=== PATIENT | female | born 1950 | race Caucasian/White ===

== ENCOUNTER 2019-04-09 07:52 | Outpatient (CLI) | payer MEDICARE, SELFPAY ==
--- NOTE | ~2019-04-09 | US_ITS ---
EXAMINATION: US carotid duplex BI DATE: 04/09/2019 13:59 INDICATION: Carotid bruit presenting with right speech and language deficit right hemiparesis includi ng right facial weakness. TECHNIQUE: Grayscale, color Doppler, and pulsed Doppler images of the cervical carotid arteries were obtained. The degree of vessel stenosis is placed in one of the following categories: normal, <50%, 5 0-69%, >=70% but less than near-occlusion, near-occlusion, or total occlusion. Note that percent sten osis relative to normal distal artery lumen diameter is indirectly measured from velocity measurement s as described by Felipe, et al. Radiology 2003; 229:340-346. COMPARISON: None. FINDINGS: RIGHT: The right common carotid artery (CCA) peak systolic velocity (PSV) is 68 cm/s. The right internal car otid artery (ICA) PSV is 100 cm/s. The right ICA end-diastolic velocity (EDV) is 32 cm/s. The right I CA/CCA PSV ratio is 1.5. Grayscale and color Doppler images yield an estimate of <50% diameter reduct ion from plaque in the ICA. The external carotid artery (ECA) PSV is 193 cm/s. There is antegrade violet w in the right vertebral artery. LEFT: The left CCA PSV is 125 cm/s. The left ICA PSV was measured as 132 cm/s. The left ICA EDV is 11 cm/s. The left ICA/CCA PSV ratio is 1.1. There is however little if any signal on the color Doppler images in the ICA and the faint waveforms demonstrate a high resistance waveform suggesting this could repr esent averaging of signal from the adjacent left ECA. There is antegrade flow in the left vertebral a rtery but with parvus and tardus waveform suggesting significant upstream stenosis. IMPRESSION: 1. <50% stenosis in the right internal carotid artery. 2. High resistance waveform in the left internal carotid artery which could be due to a high-grade do wnstream stenosis a nonvisualized more cephalad left internal carotid artery. There is however minima l if any color signal in the measured velocities and waveforms may reflect volume averaging artifact from signal in the adjacent left external carotid artery. Consider CT angiogram of the neck for more definitive determination. 3. Parvus tardus waveforms in the left vertebral artery suggesting a high-grade stenosis in the nonvi sualized more proximal left vertebral artery. This could be evaluated at the same time with CT angiog yannick of the neck. Reviewed, dictated and finalized at location A. OR ENVIRONMENTAL ENGINEER IMPRESSION: 1. <50% stenosis in the right internal carotid artery. 2. High resistance waveform in the left internal carotid artery which could be due to a high-grade downstream stenosis a nonvisualized more cephalad left inte rnal carotid artery. There is however minimal if any color signal in the measur ed velocities and waveforms may reflect volume averaging artifact from signal i n the adjacent left external carotid artery. Consider CT angiogram of the neck for more definitive determination. 3. Parvus tardus waveforms in the left vertebral artery suggesting a high-grade stenosis in the nonvisualized more proximal left vertebral artery. This could be evaluated at the same time with CT angiogram of the neck.
--- NOTE | 2019-04-09 08:10 | ECHO_ITS ---
Patient Info Name: Magdalena Thomas Age: 68 years : 1950 Gender: Female Ht: 59 in Wt: 106 lbs BSA: 1.42 m2 HR: 76 bpm BP: 116 / 67 mmHg Technical Quality: Good Exam Date: 04/09/2019 8:21 AM Exam Location: [facility] Pulmonary Patient Status: Outpatient Admit Date: 04/09/2019 Staff Ordering Physician: Kasi Arambula DO Group Exercise Instructor: Lopez Page RDCS, RT Attending Provider: Kasi Arambula DO Referring Physician: Ralf KING; Exam Type: CA echo doppler color flow Study Info Indications I50.9 - Heart failure, unspecified Complete two-dimensional, color flow and Doppler transthoracic echocardiogram is performed. Summary 1. Left ventricular chamber dimension is normal. 2. Left ventricular systolic function is normal, estimated at 55-60%. 3. There is mildly increased left ventricular wall thickness. 4. The left ventricular diastolic function is grade I diastolic dysfunction. 5. E/e' 11 is mildly elevated. 6. Global longitudinal strain is mildly abnormal at -15.9%. 7. Left atrial chamber dimension is mildly enlarged. 8. There is mild aortic valve sclerosis. 9. Mild mitral annular calcification. 10. There is trace pulmonic regurgitation. Left Ventricle E/e' 11 is mildly elevated. Global longitudinal strain is mildly abnormal at -15.9%. Left ventricular chamber dimension is normal. Left ventricular systolic function is normal, estimated at 55-60%. There is mildly increased left ventricular wall thickness. The left ventricular diastolic function is grade I diastolic dysfunction. Right Ventricle Right ventricular chamber dimension is normal. Right ventricular systolic function is normal. Left Atria Left atrial chamber dimension is mildly enlarged. Right Atria Right atrial chamber dimension is normal. Aortic Valve The aortic valve is trileaflet. There is mild aortic valve sclerosis. There is no aortic valve stenosis. There is no aortic valve regurgitation. Pulmonic Valve There is trace pulmonic regurgitation. Mitral Valve Mild mitral annular calcification. There is no mitral valve stenosis. There is no mitral valve regurgitation. Tricuspid Valve There is no tricuspid valve regurgitation. Pericardium/Pleural There is no pericardial effusion. Inferior Vena Cava Normal inferior vena cava with >50% collapse upon inspiration consistent with normal right atrial pressure, 5 mmHg. Aorta The aortic root size at the sinus of Valsalva is normal. Left Ventricular Outflow Tract Name Value Normal LVOT 2D LVOT Diameter 1.9 cm LVOT Doppler LVOT Peak Gradient 5 mmHg LVOT Mean Gradient 3 mmHg LVOT VTI 21 cm LVOT VTI/AV VTI Ratio 1.0 LVOT Stroke Volume 61 ml LVOT CO 4.5 l/min LVOT CI 3.2 l/min/m2 Pulmonic Valve Name Value Normal
== END 2019-04-09 07:53 | disposition home or self-care (01) ==
PROVIDERS: Visit Provider Internal Medicine Cardiovascular Disease
DX: I50.9 Heart failure, unspecified (principal); R09.89 Other specified symptoms and signs involving the circulatory and respiratory systems; I65.23 Occlusion and stenosis of bilateral carotid arteries; I65.1 Occlusion and stenosis of basilar artery; I51.7 Cardiomegaly; R93.1 Abnormal findings on diagnostic imaging of heart and coronary circulation
CPT/HCPCS: 93306; 93880

== ENCOUNTER 2019-04-29 10:57 | Outpatient (CLI) | payer MEDICARE, SELFPAY ==
[2019-04-29 11:49] LABS: Basophils Percent Auto 0.4 % (0.2-1.2); Eosinophils Absolute Auto 0.2 K/mm3 (0-0.3); Eosinophils Percent Auto 2.6 % (0-4.4); Hematocrit 30.2 % (37.0-47.0); Immature Granulocyte Absolute 0.06 K/mm3 (0.00-0.031); Immature Granulocyte Percent A 0.6 % (0-0.5); Lymphocytes Absolute Auto 0.91 K/mm3 (0.9-3.2); Lymphocytes Percent Auto 9.8 % (18.3-44.2); Mean Corpuscular HGB Conc 29.8 g/dl (32-36); Mean Corpuscular Hemoglobin 24.5 pg (26-34); Mean Corpuscular Volume 82.1 fl (80-100); Mean Platelet Volume 8.5 fl (7.4-10.4); Monocytes Absolute Auto 0.9 K/mm3 (0.1-0.6); Monocytes Percent Auto 9.6 % (2.6-8.5); Neutrophils Absolute Auto 7.1 K/mm3 (1.3-6.7); Platelet Count Result 189 k/mm3 (150-375); Red Blood Count 3.68 M/mm3 (4.2-5.4); Red Cell Distribution Width 19.2 % (11.5-14.5); White Blood Count 9.2 K/mm3 (4.5-10.0)
== END 2019-04-29 10:58 | disposition home or self-care (01) ==
DX: D64.9 Anemia, unspecified (principal)
CPT/HCPCS: 36415; 85025

== ENCOUNTER 2019-09-17 08:49 | Outpatient (RCR) | payer MEDICARE, SELFPAY ==
[2019-09-17 09:18] LABS: Basophils Percent Auto 0.2 % (0.2-1.2); Eosinophils Absolute Auto 0.2 K/mm3 (0-0.3); Eosinophils Percent Auto 1.4 % (0-4.4); Hematocrit 32.3 % (37.0-47.0); Hemoglobin 10.1 g/dL (12.0-15.0); Immature Granulocyte Absolute 0.05 K/mm3 (0.00-0.031); Immature Granulocyte Percent A 0.4 % (0-0.5); Lymphocytes Absolute Auto 0.35 K/mm3 (0.9-3.2); Lymphocytes Percent Auto 2.8 % (18.3-44.2); Mean Corpuscular HGB Conc 31.3 g/dl (32-36); Mean Corpuscular Hemoglobin 25.1 pg (26-34); Mean Corpuscular Volume 80.1 fl (80-100); Mean Platelet Volume 8.9 fl (7.4-10.4); Monocytes Absolute Auto 0.7 K/mm3 (0.1-0.6); Monocytes Percent Auto 5.6 % (2.6-8.5); Neutrophils Absolute Auto 11.1 K/mm3 (1.3-6.7); Neutrophils Percent Auto 89.6 % (45.5-73.1); Platelet Count Result 169 k/mm3 (150-375); Red Blood Count 4.03 M/mm3 (4.2-5.4); Red Cell Distribution Width 18.2 % (11.5-14.5); White Blood Count 12.5 K/mm3 (4.5-10.0)
[2019-09-17 09:32] LABS: Alanine Aminotransferase 11 U/L (4-35); Albumin Level 4.2 g/dL (3.5-5.1); Alkaline Phosphatase 79 U/L (38-126); Aspartate Amino Transferase 20 U/L (14-36); Bilirubin,Total 0.3 mg/dL (0.2-1.3); Blood Urea Nitrogen 48 mg/dL (7-17); Calcium 8.6 mg/dL (8.4-10.2); Carbon Dioxide 20 mmol/L (22-30); Chloride 102 mmol/L (98-107); Estimated Glomerular Filt Rate 13; Glucose 106 mg/dL (65-105); Potassium 3.1 mmol/L (3.4-5.0); Sodium 135 mmol/L (137-145)
== END 2019-12-16 23:59 | disposition home or self-care (01) ==
LOC: ANHLAB 08:49
DX: C92.10 Chronic myeloid leukemia, BCR/ABL-positive, not having achieved remission (principal); N18.9 Chronic kidney disease, unspecified
CPT/HCPCS: 36415; 80053; 85025

== ENCOUNTER 2019-12-17 08:17 | Outpatient (RCR) | payer MEDICARE, SELFPAY ==
[2019-12-17 08:57] LABS: Basophils Percent Auto 0.3 % (0.2-1.2); Eosinophils Absolute Auto 0.4 K/mm3 (0-0.3); Eosinophils Percent Auto 3.3 % (0-4.4); Hematocrit 30.4 % (37.0-47.0); Hemoglobin 9.7 g/dL (12.0-15.0); Immature Granulocyte Absolute 0.08 K/mm3 (0.00-0.031); Immature Granulocyte Percent A 0.7 % (0-0.5); Lymphocytes Absolute Auto 0.33 K/mm3 (0.9-3.2); Lymphocytes Percent Auto 2.9 % (18.3-44.2); Mean Corpuscular HGB Conc 31.9 g/dl (32-36); Mean Corpuscular Hemoglobin 27.1 pg (26-34); Mean Corpuscular Volume 84.9 fl (80-100); Mean Platelet Volume 9.1 fl (7.4-10.4); Monocytes Absolute Auto 0.7 K/mm3 (0.1-0.6); Monocytes Percent Auto 6.3 % (2.6-8.5); Neutrophils Absolute Auto 9.7 K/mm3 (1.3-6.7); Neutrophils Percent Auto 86.5 % (45.5-73.1); Platelet Count Result 141 k/mm3 (150-375); Red Blood Count 3.58 M/mm3 (4.2-5.4); Red Cell Distribution Width 17.3 % (11.5-14.5); White Blood Count 11.2 K/mm3 (4.5-10.0)
[2019-12-17 09:04] LABS: Alanine Aminotransferase 12 U/L (4-35); Albumin Level 4.4 g/dL (3.5-5.1); Alkaline Phosphatase 70 U/L (38-126); Anion Gap 13 mmol/L (8-16); Aspartate Amino Transferase 20 U/L (14-36); Bilirubin,Total 0.3 mg/dL (0.2-1.3); Blood Urea Nitrogen 51 mg/dL (7-17); Calcium 9.3 mg/dL (8.4-10.2); Carbon Dioxide 23 mmol/L (22-30); Chloride 103 mmol/L (98-107); Estimated Glomerular Filt Rate 11; Glucose 115 mg/dL (65-105); Potassium 3.2 mmol/L (3.4-5.0); Sodium 139 mmol/L (137-145)
== END 2020-03-16 23:59 | disposition home or self-care (01) ==
LOC: ANHLAB 08:17
DX: N18.9 Chronic kidney disease, unspecified (principal); C92.10 Chronic myeloid leukemia, BCR/ABL-positive, not having achieved remission
CPT/HCPCS: 36415; 80053; 85025

== ENCOUNTER 2019-12-30 08:15 | Outpatient (CLI) | payer MEDICARE, SELFPAY ==
[2019-12-30 08:30] VITALS: PULSE 79; O2SAT 91
[2019-12-30 08:35] VITALS: PULSE 93; O2SAT 87
[2019-12-30 08:40] VITALS: PULSE 100; O2SAT 91
[2019-12-30 08:50] VITALS: PULSE 82; O2SAT 92
--- NOTE | 2019-12-30 09:41 | HOMEO2EVAL ---
Home Oxygen Evaluation RC: Home Oxygen (O2) Evaluation Start: 12/30/19 09:38 Freq: Status: Active Protocol: RPE Activity Type Activity Date Activity User E-Sign Co-Sign Detail Recorded Client Recorded Date Recorded By Document 12/30/19 08:30 DJO [id number] 12/30/19 09:41 DJO Document 12/30/19 08:35 [email or web address] [email or web address] 12/30/19 09:41 DJO Document 12/30/19 08:40 [email or web address] [email or web address] 12/30/19 09:41 DJO Document 12/30/19 08:50 [email or web address] [email or web address] 12/30/19 09:41 DJO 12/30/19 12/30/19 12/30/19 08:30 08:35 08:40 Home O2 Evaluation Test Phase Resting Exercise Exercise Oxygen Delivery Nasal Cannula Nasal Cannula Nasal Cannula Oxygen Flow Rate (L/min) 2 2 3 Pulse Oximetry (90-100 %) 91 87 L 91 Pulse Rate (60-100 beats/min) 79 93 100 Activity Tolerance Good Ambulation Distance (feet) 500 Treatment Charges O2 Evaluation 12/30/19 08:50 Home O2 Evaluation Test Phase Resting Oxygen Delivery Nasal Cannula Oxygen Flow Rate (L/min) 2 Pulse Oximetry (90-100 %) 92 Pulse Rate (60-100 beats/min) 82 Activity Tolerance Ambulation Distance (feet) Treatment Charges
== END 2019-12-30 08:16 | disposition home or self-care (01) ==
PROVIDERS: Visit Provider Nurse Practitioner Family
DX: R09.02 Hypoxemia (principal)
CPT/HCPCS: 94618

== ENCOUNTER 2020-02-25 10:34 | Outpatient (CLI) | payer MEDICARE, SELFPAY ==
[2020-02-25 11:06] LABS: Hematocrit 29.5 % (37.0-47.0); Hemoglobin 9.5 g/dL (12.0-15.0); Mean Corpuscular HGB Conc 32.2 g/dl (32-36); Mean Corpuscular Hemoglobin 27.7 pg (26-34); Mean Platelet Volume 8.5 fl (7.4-10.4); Platelet Count Result 160 k/mm3 (150-375); Red Blood Count 3.43 M/mm3 (4.2-5.4); Red Cell Distribution Width 17.5 % (11.5-14.5); White Blood Count 12.7 K/mm3 (4.5-10.0)
[2020-02-25 11:18] LABS: Anion Gap 14 mmol/L (8-16); Blood Urea Nitrogen 38 mg/dL (7-17); Calcium 8.6 mg/dL (8.4-10.2); Carbon Dioxide 21 mmol/L (22-30); Chloride 102 mmol/L (98-107); Estimated Glomerular Filt Rate 11; Glucose 166 mg/dL (65-105); Phosphorus 4.8 mg/dL (2.5-4.5); Potassium 3.1 mmol/L (3.4-5.0); Sodium 137 mmol/L (137-145)
[2020-02-25 11:30] LABS: Parathyroid Intact 558.9 pg/mL (7.5-53.5)
[2020-02-25 11:44] LABS: Total Protein Urine Random 496 mg/dL
[2020-02-25 11:55] LABS: Vitamin D 25 Hydroxy 19.7 ng/mL
[2020-02-25 12:24] LABS: Folic Acid 9.7 ng/mL (2.76->20)
== END 2020-02-25 10:35 | disposition home or self-care (01) ==
LOC: ANHLAB 10:37
PROVIDERS: Internal Medicine; Visit Provider Internal Medicine Nephrology
DX: D64.9 Anemia, unspecified (principal); N18.4 Chronic kidney disease, stage 4 (severe); E55.9 Vitamin D deficiency, unspecified
CPT/HCPCS: 36415; 80069; 81050; 82306; 82607; 82746; 83970; 84156; 85027

== ENCOUNTER 2020-02-26 10:52 | Outpatient (CLI) | payer MEDICARE, SELFPAY ==
--- NOTE | ~2020-02-26 | XR_ITS ---
[id number] DATE: 02/26/2020 11:10 INDICATION: Lower right lateral rib pain following a fall one week ago. History of COPD. TECHNIQUE: PA chest. 3 views of the right ribs. COMPARISON: None FINDINGS: Diffuse osteopenia. No right rib fracture is evident. No bone destruction is detected. Probable old healed proximal right humeral shaft fracture deformity. There is mild infiltrate or atelectasis in the lower lung zones, left greater than right Heart size is within normal range. Is aortic calcification, as well as mild left pleural effusion wit h thickening. No right pleural effusion. No pneumothorax. There is mild bilateral apical scarring, le ft greater than right. IMPRESSION: Diffuse osseous pain; no right rib fracture is noted. Bibasilar infiltrate and/atelectasis, left greater than right, mild left pleural effusion or thickeni ng Reviewed, dictated and finalized at Location [facility]. Reviewed, dictated and finalized at location A. PAPER PRESS OPERATOR APPRENTICE IMPRESSION: Diffuse osseous pain; no right rib fracture is noted. Bibasilar infiltrate and/atelectasis, left greater than right, mild left pleura l effusion or thickening
== END 2020-02-26 10:53 | disposition home or self-care (01) ==
LOC: ANHIMG 10:58
PROVIDERS: Visit Provider Internal Medicine
DX: R07.81 Pleurodynia (principal); J98.11 Atelectasis
CPT/HCPCS: 71101

== ENCOUNTER 2020-05-05 10:35 | Outpatient (RCR) | payer MEDICARE, SELFPAY ==
[2020-05-05 11:20] LABS: Basophils Percent Auto 0.3 % (0.2-1.2); Eosinophils Absolute Auto 0.2 K/mm3 (0-0.3); Eosinophils Percent Auto 1.9 % (0-4.4); Hematocrit 29.4 % (37.0-47.0); Hemoglobin 9.4 g/dL (12.0-15.0); Immature Granulocyte Absolute 0.08 K/mm3 (0.00-0.031); Immature Granulocyte Percent A 0.7 % (0-0.5); Lymphocytes Absolute Auto 0.32 K/mm3 (0.9-3.2); Lymphocytes Percent Auto 2.6 % (18.3-44.2); Mean Corpuscular Hemoglobin 27.5 pg (26-34); Mean Platelet Volume 8.8 fl (7.4-10.4); Monocytes Absolute Auto 0.6 K/mm3 (0.1-0.6); Monocytes Percent Auto 4.8 % (2.6-8.5); Neutrophils Absolute Auto 10.9 K/mm3 (1.3-6.7); Neutrophils Percent Auto 89.7 % (45.5-73.1); Platelet Count Result 181 k/mm3 (150-375); Red Blood Count 3.42 M/mm3 (4.2-5.4); Red Cell Distribution Width 17.5 % (11.5-14.5); White Blood Count 12.1 K/mm3 (4.5-10.0)
[2020-05-05 11:34] LABS: Alanine Aminotransferase 10 U/L (4-35); Albumin Level 4.2 g/dL (3.5-5.1); Alkaline Phosphatase 71 U/L (38-126); Anion Gap 12 mmol/L (8-16); Aspartate Amino Transferase 20 U/L (14-36); Bilirubin,Total 0.4 mg/dL (0.2-1.3); Blood Urea Nitrogen 50 mg/dL (7-17); Calcium 8.5 mg/dL (8.4-10.2); Carbon Dioxide 22 mmol/L (22-30); Chloride 104 mmol/L (98-107); Estimated Glomerular Filt Rate 8; Glucose 114 mg/dL (65-105); Sodium 138 mmol/L (137-145)
[2020-05-05 12:52] LABS: Anisocytosis 1+ (NORMAL); Platelet Estimate Adequate (Adequate)
== END 2020-08-03 23:59 | disposition home or self-care (01) ==
LOC: ANHLAB 10:35
PROVIDERS: Referring Provider Internal Medicine Cardiovascular Disease
DX: C92.10 Chronic myeloid leukemia, BCR/ABL-positive, not having achieved remission (principal); D63.1 Anemia in chronic kidney disease; N18.9 Chronic kidney disease, unspecified
CPT/HCPCS: 36415; 80053; 85025

== ENCOUNTER 2020-05-17 02:43 | Inpatient (IN) | payer MEDICARE, SELFPAY ==
[2020-05-17] VITALS (35 sets, daily range): BP systolic 147–187; BP diastolic 53–95; PULSE 72–95; RESP 20–40; TEMP 36.1–37.1; O2SAT 77–100; BMI 27.6
--- NOTE | ~2020-05-17 | XR_ITS ---
EXAMINATION: XR chest 1V portable DATE: 05/17/2020 03:57 INDICATION: 2 days of cough and shortness of breath. TECHNIQUE: frontal view of the chest was obtained. COMPARISON: Chest radiograph dated 02/20/[address] dated 02/22/2018 FINDINGS: Pulmonary vascular congestion and increased interstitial pattern with lower lung predominance consist ent with mild pulmonary edema. Opacity left lower lung zone with blunting at the costophrenic angle c onsistent with small left pleural effusion and associated atelectasis and/or pneumonia. Increased tracee ency with some architectural distortion in the upper lung zones consistent with moderate emphysema be tter appreciated on prior CT. No pneumothorax. A few bilateral small calcified pulmonary nodules miguelito g with calcified right hilar and mediastinal lymph nodes consistent with old granulomatous disease. T he cardiomediastinal silhouette is normal. Atherosclerotic aorta. IMPRESSION: 1. Mild pulmonary edema. 2. Small left pleural effusion with associated left basilar atelectasis and/or pneumonia. 3. Moderate emphysema. Reviewed, dictated and finalized at location A.
--- NOTE | ~2020-05-17 | XR_ITS ---
XR chest 1V portable 05/20/2020 11:05 Indication: CHF exacerbation Procedure: AP portable chest Comparison: Comparison to multiple prior studies sequentially, with oldest reviewed study dated 09/14. Findings: Heart size upper normal. Mild interstitial edema. Left pleural effusion. There is atheroscl erosis of the aorta. Edema has improved since prior study. No pneumothorax. No acute osseous abnormal ity. Impression: 1: Improving interstitial edema with small left pleural effusion. Reviewed, dictated and finalized at location A. Impression: 1: Improving interstitial edema with small left pleural effusion.
--- NOTE | 2020-05-17 02:45 | ECG_ITS ---
Measurements Intervals [place] Rate: 84 P: 73 CA: 165 QRS: 56 QRSD: 96 T: 64 QT: 356 QTc: 421 Interpretive Statements SINUS RHYTHM NONSPECIFIC ST & T-WAVE ABNORMALITY- INF/LAT LEADS BASELINE ARTIFACT- I, II, III, AVL, AVF, V4-V6 BORDERLINE ECG Electronically Signed On 05-17-2020 7:37:15 CDT by Kasi Arambula D.O.
--- NOTE | 2020-05-17 02:51 | ED.GENADULT ---
HPI - General Adult General Chief complaint: Shortness of Breath/Dyspnea Stated complaint: resp distress x 2-3 hours Time Seen by Provider: 05/17/20 02:45 Source: RN notes reviewed History of Present Illness HPI narrative: Patient presents to emergency department from home for shortness of breath. Patient states she has been more short of breath for the past 2 days and worse in the last several hours states she is chronically on 4 L nasal cannula at home. Patient has a history of COPD and CHF states she has been wheezing at home as well and having a cough this been nonproductive. She denies any fevers or chills chest pain abdominal pain nausea vomiting or any other symptoms. States she does have stage V kidney disease is not currently on dialysis Followed by Dr Arambula and Dr Moreno Related Data Home Medications Medication Instructions Recorded Confirmed amlodipine 10 mg PO DAILY 02/17/19 05/11/20 aspirin [Aspirin Childrens] 81 mg PO DAILY 02/17/19 05/11/20 dasatinib [Sprycel] 100 mg PO DAILY 02/17/19 05/11/20 hydrochlorothiazide 25 mg PO DAILY 05/17/20 05/17/20 Allergies Allergy/AdvReac Type Severity Reaction Status Date / Time Penicillins Allergy Mild Vomiting Verified 05/11/20 10:25 Review of Systems Review of Systems: Narrative: Gen.: Denies fevers or chills ENT: Denies congestion Respiratory: See HPI CV: Denies chest pain or palpitations GI: Denies abdominal pain nausea, emesis or diarrhea Musculoskeletal: Denies back pain or muscle pain Neuro: Denies numbness, tingling, weakness or focal weakness Skin: Denies rash Except as documented, all other systems reviewed and negative [facility] Past Medical History Medical History (Updated 05/17/20 @ 04:53 by Neo Crump DO) CML (chronic myelocytic leukemia) Congestive heart failure COPD (chronic obstructive pulmonary disease) CVA (cerebral vascular accident) Diabetes type 2, controlled Hyperlipidemia Hypertension JAEL (obstructive sleep apnea) Surgical History Surgical History H/O: hysterectomy Family History Family History Father Family history of cardiovascular disease Mother Family history of chronic obstructive pulmonary disease Family history of lung cancer Sibling Family history of chronic obstructive pulmonary disease Patient's sister is in good health Other Family history of malignant neoplasm of uterus Social History Social History Years smoked: 50 Smoking status: Former smoker Tobacco type: cigarettes Second hand tobacco smoke exposure: Yes Smoking end date: 02/27/13 Alcohol intake: never Substance use: never Gender identity (if verbalized by the patient): Female Spiritual care concerns: No Agree to blood products: No Exam Narrative: Exam Narrative: APPEARANCE: Moderate respiratory distress nontoxic, resting in bed HEENT: Normocephalic, atraumatic OMM RESPIRATORY: Moderate respiratory distress, decreased breath sounds at the bilateral lung harman with wheezing upper lung harman no rhonchi CARDIOVASCULAR: Regular rate and rhythm without murmurs rubs or gallops. ABDOMINAL: Soft, nontender, nondistended, no rebound or guarding MUSCULOSKELETAl: Moves all extremities. No clubbing, cyanosis 2+ edema of the bilateral lower extremities NEURO: Awake and alert. Following commands, speech normal, no focal deficits SKIN:: Warm, dry. Normal Color PSYCHIATRIC: Normal affect/mood, Course Course Emergency Course: Review old records creatinine is consistent with prior Patient states she is feeling better following breathing treatments repeat lung exam shows increased aeration with wheezing upper lung harman Discussed Dr. Fraire presentation work-up agrees with admission at this time. Request patient be tested for Covid agrees with Lasix 40 at this
[2020-05-17] MEDS: methylPREDNISolone SOD SUCC 125 MG VIAL IV PUSH (03:06)
[2020-05-17] MEDS: ALBUTEROL SULFATE NEB 2.5 MG/0.5 ML INH 5 MG INHALATION ×5 (03:08→20:21)
[2020-05-17] MEDS: IPRATROPIUM BR 0.02% INH SOLN 0.5 MG/2.5 ML VIAL INHALATION ×5 (03:08→20:21)
[2020-05-17 03:10] LABS: Basophils Absolute Auto 0.1 K/mm3 (0.0-0.1); Basophils Percent Auto 0.3 % (0.2-1.2); Eosinophils Absolute Auto 0.1 K/mm3 (0-0.3); Eosinophils Percent Auto 0.7 % (0-4.4); Hematocrit 28.6 % (37.0-47.0); Hemoglobin 9.1 g/dL (12.0-15.0); Immature Granulocyte Absolute 0.17 K/mm3 (0.00-0.031); Immature Granulocyte Percent A 1.1 % (0-0.5); Lymphocytes Percent Auto 3.3 % (18.3-44.2); Mean Corpuscular HGB Conc 31.8 g/dl (32-36); Mean Corpuscular Hemoglobin 27.7 pg (26-34); Mean Corpuscular Volume 87.2 fl (80-100); Mean Platelet Volume 8.6 fl (7.4-10.4); Monocytes Absolute Auto 1.1 K/mm3 (0.1-0.6); Neutrophils Absolute Auto 13.5 K/mm3 (1.3-6.7); Neutrophils Percent Auto 87.6 % (45.5-73.1); Nucleated Red Blood Cells Absolute Auto 0.1 K/mm3 (0.0-0.012); Nucleated Red Blood Cells Perc 0.5 % (0.0-0.2); Platelet Count Result 206 k/mm3 (150-375); Red Blood Count 3.28 M/mm3 (4.2-5.4); Red Cell Distribution Width 18.6 % (11.5-14.5); White Blood Count 15.4 K/mm3 (4.5-10.0)
[2020-05-17 03:18] LABS: Alveolar/Arterial O2 Gradient 146.2 mmHg; Base Excess ABG -6.4 mEq/l (+/-2.0); Fractional Inspired Oxygen 36 %; HCO3 ABG 18.4 mEq/l (22.0-26.0); Oxygen Content ABG 12.4 %vol (16.0-22.0); Oxyhemoglobin 91.9 % THb (90.0-100.0); PCO2 ABG 33.4 mmHg (35.0-45.0); PO2 ABG 71.7 mmHg (80.0-100.0); PO2 FiO2 Ratio Arterial Blood 1.99 %; Total Hemoglobin 9.5 g/dL (12.0-18.0); pH ABG 7.358 (7.350-7.450)
[2020-05-17 03:21] LABS: Prothrombin Time 14.2 Seconds (11.1-14.7)
[2020-05-17 03:22] LABS: Anion Gap 14 mmol/L (8-16); Blood Urea Nitrogen 55 mg/dL (7-17); Carbon Dioxide 19 mmol/L (22-30); Chloride 104 mmol/L (98-107); Estimated Glomerular Filt Rate 9; Glucose 146 mg/dL (65-105); Partial Thromboplastin Time 31.1 SECONDS (22.3-36.8); Sodium 137 mmol/L (137-145)
[2020-05-17 03:33] LABS: Device NASAL CANNULA; Modified Allen's Test Pass; Site Drawn RIGHT RADIAL
[2020-05-17 03:39] LABS: NT Pro B Type Natriuretic Pept 6400 PG/ML (5-100); Troponin I 0.039 ng/mL (0.000-0.034)
[2020-05-17 03:47] LABS: Lactic Acid Reflex 0.7 mmol/L (0.7-2.1)
[2020-05-17 04:57] LABS: Potassium 3.1 mmol/L (3.4-5.0)
[2020-05-17] MEDS: POTASSIUM CHLORIDE 20 MEQ TABLET 40 MEQ PO (04:58)
[2020-05-17] MEDS: FUROSEMIDE INJ 40 MG/4 ML VIAL IV PUSH (04:58)
--- NOTE | 2020-05-17 05:35 | ADMGEN ---
This patient, Magdalena Thomas, was admitted to IMU Room 212-01. Patient/family oriented to hospital policies and general routines including ID bracelet, bed and alarms, visiting hours, pain management, procedures, bathroom and other care routines, personal items, smoking policy, room service/diet, and visiting hours. Information on how to activate the Rapid Response Team has been discussed. Patient/Family are encouraged to report perceived risks to care and to ask questions if they do not understand what they are told or what they should do.
[2020-05-17] MEDS: ALBUTEROL SULFATE NEB 2.5 MG/3 ML INH 5 MG INHALATION (06:10)
[2020-05-17 08:28] LABS: Troponin I 0.033 ng/mL (0.000-0.034)
--- NOTE | 2020-05-17 08:36 | PM.IMHP ---
H&P: HPI History of Present Illness Date/Time: 05/17/20 08:36 PATIENT IS PLACED UNDER OBSERVATION Chief Complaint: breathing problems Narrative: 69yo female with COPD, untreated JAEL and chronic respiratory failure on 4L here for shortness of breath. She has been having increasing SOB over the past 2 days with cough productive of white/clear sputum. She has JAEL but is intolerant to NIV. No pleuritic CP. No CP or palpitations. No fevers or chills. No exposure to COVID. She lives at home with dtr and son-in-law. She denies odynophagia or dysphagia. She does have CKD and refuses to go on HD. She has noted increased UOP but has been drinking increased amounts of water recently. She is also on lasix. No foam cells, hematuria or dysuria. Has been using an inhaler (albuterol?) over the past few days with minimal benefit. No anosmia or dysgeusia. When asked more detailed questions, she states she has memory problems and repeatedly asks me to talk with her daughter. As such, hx is somewhat limited. 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 Pulse ox 77% 4L with RR 39. ABG 7.36/33/72 4L. Cr 4.8. BNP 6400. CXR showing mild pulmonary edema, small left pleural effusion, left basilar airspace disease and emphysema. She was treated with nebulizer treatments and steroids. Lasix 40mg IV once given as well. Spoke with daughter. Patient with one kidney. She agrees with patient about the DNR status. Patient has a 'horrible diet' eatnig potatoes and salt. She has CML and currently in remission; she does receive a shot every 3-4 months with most recent dose last week on Monday. There is a concern that the CML is recurring. She was seen by PCP and felt to be allergies/viral illness in March. More rundown past 2weeks. More SOb past 2 days. Wears O2 4L at night regularly past 6 months but intermittent prior to that. Review of Systems Review of Systems: All systems reviewed & are unremarkable except as noted in HPI and below PMFSH Past Medical History Medical History (Updated 05/17/20 @ 09:54 by Niels Joseph MD) Anemia Carotid artery disease Chronic respiratory failure 4L chronically CKD (chronic kidney disease) Hx of one kidney CML (chronic myelocytic leukemia) Congestive heart failure COPD (chronic obstructive pulmonary disease) CVA (cerebral vascular accident) In 2009, 2011 with right sided weakness mostly in the right hand weakness Diabetes type 2, controlled Hyperlipidemia Hypertension JAEL (obstructive sleep apnea) Surgical History Surgical History (Updated 05/17/20 @ 08:40 by Niels Joseph MD) H/O: hysterectomy Hx of right knee surgery Family History Family History Father Family history of cardiovascular disease Mother Family history of chronic obstructive pulmonary disease Family history of lung cancer Sibling Family history of chronic obstructive pulmonary disease Patient's sister is in good health Other Family history of malignant neoplasm of uterus Social History Social History (Updated 05/17/20 @ 08:43 by Niels Joseph MD) Social History: Tobacco use x 54yrs up to 1ppd. Rare alcohol use. in 2013. Years smoked: 50 Smoking status: Former smoker Tobacco type: cigarettes Second hand tobacco smoke exposure: Yes Smoking end date: 02/27/13 Alcohol intake: never Substance use: never Gender identity (if verbalized by the patient): Female Spiritual care concerns: No Agree to blood products: No Meds Home Medications and Allergies Home Medications Medication Instructions Recorded Confirmed Type amlodipine 10 mg PO DAILY 02/17/19 05/17/20 History aspirin [Aspirin Childrens] 81 mg PO DAILY 02/17/19 05/17/20 History albuterol sulfate 90 mcg/actuation 2 puff INHALATION Q4-6H PRN #8.5 gm 10/18/19 05/17/20 Rx aerosol inhaler calcitriol 0.25 mcg capsu
[2020-05-17 11:24] LABS: Troponin I 0.026 ng/mL (0.000-0.034)
[2020-05-17] MEDS: HEPARIN SODIUM 5,000 UNITS/ML VIAL 5000 UNITS SUB-Q ×2 (11:35→21:41)
[2020-05-17] MEDS: carvediloL 6.25 MG TABLET PO ×2 (11:35→21:42)
[2020-05-17] MEDS: ASPIRIN 81 MG CHEWABLE TABLET PO (11:35)
[2020-05-17] MEDS: ATORVASTATIN 10 MG TABLET BY MOUTH (11:35)
[2020-05-17] MEDS: amLODIPine BESYLATE 5 MG TABLET 10 MG PO (11:35)
[2020-05-17] MEDS: methylPREDNISolone SOD SUCC 125 MG VIAL 60 MG IV PUSH ×2 (14:44→21:41)
--- NOTE | 2020-05-17 15:47 | PHAR ---
Drug Name: Sprycel Ingredients: Dasatinib -- 100 MG Related Documents: DRUGDEX Evaluations - DASATINIB Color: White to Off-White Shape: Oval Imprint: BMS 100 , 432 Form: Oral Tablet
[2020-05-18] VITALS (29 sets, daily range): BP systolic 142–181; BP diastolic 55–85; PULSE 69–101; RESP 18–26; TEMP 35.7–36.7; O2SAT 93–98
[2020-05-18] MEDS: ALBUTEROL SULFATE NEB 2.5 MG/0.5 ML INH 5 MG INHALATION ×4 (01:32→20:22)
[2020-05-18] MEDS: IPRATROPIUM BR 0.02% INH SOLN 0.5 MG/2.5 ML VIAL INHALATION ×4 (01:33→20:22)
[2020-05-18 04:42] LABS: Hematocrit 25.7 % (37.0-47.0); Hemoglobin 8.2 g/dL (12.0-15.0); Immature Granulocyte Absolute 0.16 K/mm3 (0.00-0.031); Immature Granulocyte Percent A 2.4 % (0-0.5); Lymphocytes Absolute Auto 0.09 K/mm3 (0.9-3.2); Lymphocytes Percent Auto 1.3 % (18.3-44.2); Mean Corpuscular HGB Conc 31.9 g/dl (32-36); Mean Corpuscular Hemoglobin 27.2 pg (26-34); Mean Corpuscular Volume 85.1 fl (80-100); Mean Platelet Volume 8.8 fl (7.4-10.4); Monocytes Absolute Auto 0.1 K/mm3 (0.1-0.6); Neutrophils Absolute Auto 6.5 K/mm3 (1.3-6.7); Neutrophils Percent Auto 95.3 % (45.5-73.1); Nucleated Red Blood Cells Absolute Auto 0.1 K/mm3 (0.0-0.012); Nucleated Red Blood Cells Perc 0.7 % (0.0-0.2); Platelet Count Result 183 k/mm3 (150-375); Red Blood Count 3.02 M/mm3 (4.2-5.4); Red Cell Distribution Width 17.8 % (11.5-14.5); White Blood Count 6.8 K/mm3 (4.5-10.0)
[2020-05-18 04:54] LABS: Albumin Level 3.8 g/dL (3.5-5.1); Anion Gap 12 mmol/L (8-16); Blood Urea Nitrogen 55 mg/dL (7-17); Calcium 8.1 mg/dL (8.4-10.2); Carbon Dioxide 19 mmol/L (22-30); Chloride 104 mmol/L (98-107); Estimated Glomerular Filt Rate 10; Glucose 181 mg/dL (65-105); Magnesium 2.3 mg/dL (1.6-2.3); Phosphorus 4.6 mg/dL (2.5-4.5); Potassium 3.1 mmol/L (3.4-5.0); Sodium 135 mmol/L (137-145)
[2020-05-18 05:15] LABS: Ovalocytes 1+ (NORMAL); Platelet Estimate Adequate (Adequate); Tear Drop Cells 1+ (NORMAL)
[2020-05-18] MEDS: methylPREDNISolone SOD SUCC 125 MG VIAL 60 MG IV PUSH ×3 (05:51→21:00)
[2020-05-18] MEDS: ATORVASTATIN 10 MG TABLET BY MOUTH (09:03)
[2020-05-18] MEDS: amLODIPine BESYLATE 5 MG TABLET 10 MG PO (09:03)
[2020-05-18] MEDS: calcitrioL 0.25 MCG CAPSULE BY MOUTH (09:03)
[2020-05-18] MEDS: carvediloL 6.25 MG TABLET PO ×2 (09:03→12:04)
[2020-05-18] MEDS: ASPIRIN 81 MG CHEWABLE TABLET PO (09:03)
[2020-05-18] MEDS: HEPARIN SODIUM 5,000 UNITS/ML VIAL 5000 UNITS SUB-Q ×2 (09:03→20:59)
--- NOTE | 2020-05-18 11:06 | PM.IMPN ---
Progress Note: A&P Assessment and Plan (1) Acute respiratory failure with hypoxia: Code(s): J96.01 - Acute respiratory failure with hypoxia Status: Acute Assessment and Plan: Patient was hypoxic on admission with low SAO2 and elevated resp rate. Most likely related to COPD +/- CHF exacerbation. Able to be weaned back down to 4 L nasal cannula. Lasix given once in ED. Continue treatment for COPD. Follow closely. COVID test pending (2) COPD exacerbation: Code(s): J44.1 - Chronic obstructive pulmonary disease with (acute) exacerbation Status: Acute Assessment and Plan: Started on nebulizer treatments and Solu-Medrol. Wheezing resolved and with good air exchange. Feeling better overall. Continue current respiratory treatment plan. Change to oral Prednisone tomorrow. (3) CHF (congestive heart failure): Qualifiers: Heart failure chronicity: acute on chronic Heart failure type: diastolic Qualified Code(s): I50.33 - Acute on chronic diastolic (congestive) heart failure Code(s): I50.9 - Heart failure, unspecified Status: Acute Assessment and Plan: Probably mild acute on chronic diastolic CHF. Echo in Mar 2019 showing EF 55-60% with Grade I diastolic dysfunction. Lasix IV once given. Cr 4.8 on admission and better on repeat. Will follow renal function. Some crackles but probably atelectasisi. Add IS. She is down to 3L so montrell hold on repeating Lasix. Follow clinically (4) Elevated troponin: Code(s): R77.8 - Other specified abnormalities of plasma proteins Status: Acute Assessment and Plan: Trop elevated to 0.[address]-T wave changes (EKG reviewed). Suspect elevated Trop more likely related to the CKD then cardiac in nature. Repeat Trop value normal. (5) Chronic respiratory failure: Code(s): J96.10 - Chronic respiratory failure, unspecified whether with hypoxia or hypercapnia Status: Inactive Assessment and Plan: Related to chronic COPD. Continue 4L O2 NC. (6) Anemia: Code(s): D64.9 - Anemia, unspecified Status: Acute Assessment and Plan: Patietn with chronic anemia with Hgb running in the 9-10 range from chart review. B12 and folate levels okay in January. No iron studies. Hgb 9.1 on admission but has dropped to 8.2 today but suspect overall this is chronic related to her CKD. Will check iron studies and follow HH. Transfuse as needed. (7) Chronic renal insufficiency: Code(s): N18.9 - Chronic kidney disease, unspecified Status: Acute Assessment and Plan: Tierney with one functioning kidney. The other was 'shriveled up' per daughter. Tierney follows with Dr Moreno. Cr 3.6-4.1 last year and 5.1 earlier this month. Cr 4.8 on admission here and improved to 4.2. Bicarb low - add NaBicarb. Follow. Consider nephrology consult if Cr worsens. Patient has decided against HD. She also wants to be DNR status and dtr agreed so status changed. BP poorly controlled so will advance Coreg. (8) Carotid bruit: Code(s): R09.89 - Other specified symptoms and signs involving the circulatory and respiratory systems Status: Acute Assessment and Plan: Noted on exam. Patient has known carotid stenosis. Dtr states no plans for surgical repair since may cause more problems. No further workup planned. (9) JAEL (obstructive sleep apnea): Code(s): G47.33 - Obstructive sleep apnea (adult) (pediatric) Status: Acute Assessment and Plan: Patient noncompliant with NIV. Tierney wears the 4L at night regularly. She was wearing 4L O2 while awake intermittently but more continuous daily use over the past 6 months. Continue O2 at 4L. (10) DVT prophylaxis: Code(s): Z29.9 - Encounter for prophylactic measures, unspecified Status: Acute Assessment and Plan: heparin Subjective Date/time
[2020-05-18] MEDS: SODIUM BICARBONATE TAB 325 MG TABLET PO ×2 (11:07→16:48)
[2020-05-18] MEDS: EUCERIN CREAM 120 GM JAR 1 APPLIC TOPICAL (12:05)
[2020-05-18 13:22] LABS: SARS-CoV-2 RNA PCR Negative
[2020-05-18] MEDS: carvediloL 12.5 MG TABLET PO (21:00)
[2020-05-19] VITALS (23 sets, daily range): BP systolic 128–167; BP diastolic 53–73; PULSE 57–89; RESP 16–24; TEMP 36.1–36.6; O2SAT 94–100
[2020-05-19] MEDS: ALBUTEROL SULFATE NEB 2.5 MG/0.5 ML INH 5 MG INHALATION ×4 (01:47→19:41)
[2020-05-19] MEDS: IPRATROPIUM BR 0.02% INH SOLN 0.5 MG/2.5 ML VIAL INHALATION ×4 (01:47→19:41)
[2020-05-19 04:54] LABS: Hematocrit 23.9 % (37.0-47.0); Hemoglobin 7.6 g/dL (12.0-15.0); Mean Corpuscular HGB Conc 31.8 g/dl (32-36); Mean Corpuscular Hemoglobin 27.5 pg (26-34); Mean Corpuscular Volume 86.6 fl (80-100); Mean Platelet Volume 8.8 fl (7.4-10.4); Platelet Count Result 182 k/mm3 (150-375); Red Blood Count 2.76 M/mm3 (4.2-5.4); Red Cell Distribution Width 18.2 % (11.5-14.5); White Blood Count 9.5 K/mm3 (4.5-10.0)
[2020-05-19 05:23] LABS: Iron 49 ug/dL (37-170)
[2020-05-19 05:26] LABS: Albumin Level 3.6 g/dL (3.5-5.1); Anion Gap 14 mmol/L (8-16); Blood Urea Nitrogen 77 mg/dL (7-17); Calcium 7.6 mg/dL (8.4-10.2); Carbon Dioxide 16 mmol/L (22-30); Chloride 104 mmol/L (98-107); Estimated Glomerular Filt Rate 10; Glucose 167 mg/dL (65-105); Phosphorus 5.7 mg/dL (2.5-4.5); Potassium 2.8 mmol/L (3.4-5.0); Sodium 134 mmol/L (137-145)
[2020-05-19 05:33] LABS: Percent Iron Saturation 21 % (20-50)
[2020-05-19] MEDS: amLODIPine BESYLATE 5 MG TABLET 10 MG PO (09:06)
[2020-05-19] MEDS: ATORVASTATIN 10 MG TABLET BY MOUTH (09:06)
[2020-05-19] MEDS: ASPIRIN 81 MG CHEWABLE TABLET PO (09:06)
[2020-05-19] MEDS: predniSONE 20 MG TABLET 40 MG PO (09:06)
[2020-05-19] MEDS: SODIUM BICARBONATE TAB 325 MG TABLET PO ×2 (09:07→18:20)
[2020-05-19] MEDS: EUCERIN CREAM 120 GM JAR 1 APPLIC TOPICAL (09:07)
[2020-05-19] MEDS: carvediloL 12.5 MG TABLET PO ×2 (09:07→22:18)
[2020-05-19] MEDS: HEPARIN SODIUM 5,000 UNITS/ML VIAL 5000 UNITS SUB-Q ×2 (09:07→22:19)
[2020-05-19 15:48] LABS: Potassium 3.6 mmol/L (3.4-5.0)
--- NOTE | 2020-05-19 16:42 | PM.IMPN ---
Progress Note: A&P Assessment and Plan (1) Acute respiratory failure with hypoxia: Code(s): J96.01 - Acute respiratory failure with hypoxia Status: Acute Assessment and Plan: Patient here with COPD +/- CHF exacerbation. Hopeful DC tomorrow. COVID test pending (2) COPD exacerbation: Code(s): J44.1 - Chronic obstructive pulmonary disease with (acute) exacerbation Status: Acute Assessment and Plan: Started on nebulizer treatments and Solu-Medrol. (3) CHF (congestive heart failure): Qualifiers: Heart failure chronicity: acute on chronic Heart failure type: diastolic Qualified Code(s): I50.33 - Acute on chronic diastolic (congestive) heart failure Code(s): I50.9 - Heart failure, unspecified Status: Acute Assessment and Plan: Probably mild acute on chronic diastolic CHF. (4) Elevated troponin: Code(s): R77.8 - Other specified abnormalities of plasma proteins Status: Acute Assessment and Plan: Trop elevated to 0.[address]-T wave changes (EKG reviewed). (5) Chronic respiratory failure: Code(s): J96.10 - Chronic respiratory failure, unspecified whether with hypoxia or hypercapnia Status: Inactive Assessment and Plan: Related to chronic COPD. Continue 4L O2 NC. Pt is back to baseline. (6) Anemia: Code(s): D64.9 - Anemia, unspecified Status: Acute Assessment and Plan: Patietn with chronic anemia with Hgb running in the 9-10 range from chart review. (7) Chronic renal insufficiency: Code(s): N18.9 - Chronic kidney disease, unspecified Status: Acute Assessment and Plan: Patietn with one functioning kidney. Potassium level low today pt denies nausea or vomiting (8) Carotid bruit: Code(s): R09.89 - Other specified symptoms and signs involving the circulatory and respiratory systems Status: Acute Assessment and Plan: Noted on exam. (9) JAEL (obstructive sleep apnea): Code(s): G47.33 - Obstructive sleep apnea (adult) (pediatric) Status: Acute Assessment and Plan: Patient noncompliant with NIV. (10) DVT prophylaxis: Code(s): Z29.9 - Encounter for prophylactic measures, unspecified Status: Acute Assessment and Plan: heparin Subjective Date/time seen: 05/19/20 16:42 Interval history: 69yo female with COPD, untreated JAEL and chronic respiratory failure on 4L here for shortness of breath. She has been having increasing SOB over the past 2 days with cough productive of white/clear sputum. Potassium levels are running low otherwise pt feels better, pt is on 2 liters of oxygen, hopeful DC [place] after CXR Review of Systems Review of Systems: All systems reviewed & are unremarkable except as noted in HPI and below Exam Narrative: Exam Narrative: Vital Signs Temp Pulse Resp BP Pulse Ox 05/19/20 16:00 36.4 C 72 22 H 167/65 H 100 05/19/20 14:38 72 20 05/19/20 14:29 67 20 05/19/20 14:00 57 L 05/19/20 12:00 36.4 C 69 20 145/53 H 98 05/19/20 10:00 64 05/19/20 09:07 76 05/19/20 08:00 36.3 C L 79 16 136/60 97 05/19/20 07:47 71 20 05/19
[2020-05-20] VITALS (11 sets, daily range): BP systolic 134–147; BP diastolic 54–57; PULSE 64–79; RESP 18–20; TEMP 36.3–36.5; O2SAT 93–98
[2020-05-20] MEDS: ALBUTEROL SULFATE NEB 2.5 MG/0.5 ML INH 5 MG INHALATION ×2 (02:06→09:05)
[2020-05-20] MEDS: IPRATROPIUM BR 0.02% INH SOLN 0.5 MG/2.5 ML VIAL INHALATION ×2 (02:06→09:06)
[2020-05-20 05:38] LABS: Anion Gap 14 mmol/L (8-16); Blood Urea Nitrogen 93 mg/dL (7-17); Carbon Dioxide 16 mmol/L (22-30); Chloride 100 mmol/L (98-107); Estimated Glomerular Filt Rate 8; Glucose 138 mg/dL (65-105); Potassium 3.3 mmol/L (3.4-5.0); Sodium 130 mmol/L (137-145)
[2020-05-20] MEDS: ATORVASTATIN 10 MG TABLET BY MOUTH (10:05)
[2020-05-20] MEDS: carvediloL 12.5 MG TABLET PO (10:05)
[2020-05-20] MEDS: SODIUM BICARBONATE TAB 325 MG TABLET PO (10:05)
[2020-05-20] MEDS: ASPIRIN 81 MG CHEWABLE TABLET PO (10:05)
[2020-05-20] MEDS: amLODIPine BESYLATE 5 MG TABLET 10 MG PO (10:06)
[2020-05-20] MEDS: predniSONE 20 MG TABLET 40 MG PO (10:06)
[2020-05-20] MEDS: HEPARIN SODIUM 5,000 UNITS/ML VIAL 5000 UNITS SUB-Q (10:06)
[2020-05-20] MEDS: EUCERIN CREAM 120 GM JAR 1 APPLIC TOPICAL (10:12)
--- NOTE | 2020-05-20 13:16 | PM.DS ---
DS: Admitting Diagnosis Admitting Diagnosis Admitting Diagnosis: Breathing problems DS: Discharge Diagnosis Discharge Diagnosis (1) Acute respiratory failure with hypoxia: Code(s): J96.01 - Acute respiratory failure with hypoxia Status: Acute Assessment and Plan: Patient here with COPD +/- CHF exacerbation. Pt feels better back to her baseline. Hopeful DC tomorrow. Covid test was negative. (2) COPD exacerbation: Code(s): J44.1 - Chronic obstructive pulmonary disease with (acute) exacerbation Status: Acute Assessment and Plan: Started on nebulizer treatments and Solu-Medrol. Pt stable for discharge. (3) CHF (congestive heart failure): Qualifiers: Heart failure chronicity: acute on chronic Heart failure type: diastolic Qualified Code(s): I50.33 - Acute on chronic diastolic (congestive) heart failure Code(s): I50.9 - Heart failure, unspecified Status: Acute Assessment and Plan: Probably mild acute on chronic diastolic CHF. (4) Elevated troponin: Code(s): R77.8 - Other specified abnormalities of plasma proteins Status: Acute Assessment and Plan: Trop elevated to 0.[address]-T wave changes (EKG reviewed). (5) Chronic respiratory failure: Code(s): J96.10 - Chronic respiratory failure, unspecified whether with hypoxia or hypercapnia Status: Inactive Assessment and Plan: Related to chronic COPD. Continue 4L O2 NC. Pt is back to baseline. (6) Anemia: Code(s): D64.9 - Anemia, unspecified Status: Acute Assessment and Plan: Patietn with chronic anemia with Hgb running in the 9-10 range from chart review. (7) Chronic renal insufficiency: Code(s): N18.9 - Chronic kidney disease, unspecified Status: Acute Assessment and Plan: Patietn with one functioning kidney. Potassium level low today pt denies nausea or vomiting like due to her renal insufficiency. (8) Carotid bruit: Code(s): R09.89 - Other specified symptoms and signs involving the circulatory and respiratory systems Status: Acute Assessment and Plan: Noted on exam. (9) JAEL (obstructive sleep apnea): Code(s): G47.33 - Obstructive sleep apnea (adult) (pediatric) Status: Acute Assessment and Plan: Patient noncompliant with NIV. (10) DVT prophylaxis: Code(s): Z29.9 - Encounter for prophylactic measures, unspecified Status: Acute Assessment and Plan: heparin DS: Summary Hospital Course Hospital Course: 69yo female with COPD, untreated JAEL and chronic respiratory failure on 4L here for shortness of breath. She has been having increasing SOB over the past 2 days with cough productive of white/clear sputum. Potassium levels are running low otherwise pt feels better, pt is on 2 liters of oxygen, Cxr is better, pt is back to baseline and ready for discharge. Time Spent with Patient Time attestation: Total time spent providing and/or coordinating discharge services: 40 minutes on day of discharge Exam Narrative: Exam Narrative: Vital Signs Temp Pulse Resp BP Pulse Ox 05/19/20 16:00 36.4 C 72 22 H 167/65 H 100 05/19/20 14:38 72 20 05/19/20 14:29 67 20 05/19/20 14:00 57 L 05/19/20 12:00 36.4 C 69 20 145/53 H 98 05/19/20 10:00 64 05/19/20 09:07 76
== END 2020-05-20 14:09 | disposition home or self-care (01) | DRG 190 ==
LOC: ANHED 04:53 → ANHIMU 05:21
PROVIDERS: Internal Medicine; Admitting Provider Internal Medicine; Emergency Provider Emergency Medicine; PCP Internal Medicine; Visit Provider Family Medicine
DX: J44.1 Chronic obstructive pulmonary disease with (acute) exacerbation (principal); I50.33 Acute on chronic diastolic (congestive) heart failure; J96.21 Acute and chronic respiratory failure with hypoxia; C92.10 Chronic myeloid leukemia, BCR/ABL-positive, not having achieved remission; I13.0 Hypertensive heart and chronic kidney disease with heart failure and stage 1 through stage 4 chronic kidney disease, or unspecified chronic kidney disease; Z20.822 Contact with and (suspected) exposure to COVID-19; E11.22 Type 2 diabetes mellitus with diabetic chronic kidney disease; N18.9 Chronic kidney disease, unspecified; D63.1 Anemia in chronic kidney disease; G47.33 Obstructive sleep apnea (adult) (pediatric); E87.6 Hypokalemia; E78.5 Hyperlipidemia, unspecified; R77.8 Other specified abnormalities of plasma proteins; I65.29 Occlusion and stenosis of unspecified carotid artery; Z66 Do not resuscitate; Z79.82 Long term (current) use of aspirin; Z79.899 Other long term (current) drug therapy; Z86.73 Personal history of transient ischemic attack (TIA), and cerebral infarction without residual deficits; Z87.891 Personal history of nicotine dependence; Z91.19 Patient's noncompliance with other medical treatment and regimen; Z99.81 Dependence on supplemental oxygen
CPT/HCPCS: 36415; 36600; 71045; 80048; 80069; 82805; 83540; 83550; 83605; 83735; 83880; 84132; 84484; 85025; 85027; 85610; 85730; 87040; 93005; 94640; 96372; 96374; 96375; 96376; 97110; 97116; 97161; 97165; 99285; A9270; C9803; G0378; J1644; J1940; J2930; J3480; J7512; U0003; U0005

== ENCOUNTER 2020-11-04 10:24 | Emergency (ER) | payer OTHER, MEDICARE, SELFPAY ==
--- NOTE | 2020-11-04 10:40 | ED.GENADULT ---
HPI - General Adult General Chief complaint: Extremity Injury, Upper Stated complaint: Needs ring cut off finger Time Seen by Provider: 11/04/20 10:28 Source: patient, family and RN notes reviewed Mode of arrival: ambulatory Limitations: no limitations History of Present Illness HPI narrative: Patient is a 70-year-old female who presents to emergency department for evaluation of ring stuck on the right ring finger for the last day she has a history of swelling in this hand she is on hospice presents with family they have no other complaints at this time would like the ring to be removed Related Data Home Medications Medication Instructions Recorded Confirmed amlodipine 10 mg PO DAILY 02/17/19 05/25/20 aspirin [Aspirin Childrens] 81 mg PO DAILY 02/17/19 05/25/20 budesonide-formoterol 2 puff INHALATION Q12H 05/17/20 05/25/20 dasatinib 100 mg PO DAILY 05/17/20 05/25/20 fluticasone furoate 100 1 inh INHALATION DAILY 05/25/20 05/25/20 mcg-vilanterol 25 mcg/dose inhalation powder Allergies Allergy/AdvReac Type Severity Reaction Status Date / Time Penicillins Allergy Mild Vomiting Verified 11/04/20 10:45 Review of Systems Review of Systems: All systems reviewed & are unremarkable except as noted in HPI and below PMFSH Past Medical History Medical History Anemia Carotid artery disease Chronic respiratory failure 4L chronically CKD (chronic kidney disease) Hx of one kidney CML (chronic myelocytic leukemia) Congestive heart failure COPD (chronic obstructive pulmonary disease) CVA (cerebral vascular accident) In 2009, 2011 with right sided weakness mostly in the right hand weakness Diabetes type 2, controlled Hyperlipidemia Hypertension JAEL (obstructive sleep apnea) Surgical History Surgical History H/O: hysterectomy Hx of right knee surgery Family History Family History Father Family history of cardiovascular disease Mother Family history of chronic obstructive pulmonary disease Family history of lung cancer Sibling Family history of chronic obstructive pulmonary disease Patient's sister is in good health Other Family history of malignant neoplasm of uterus Social History Social History Social History: Tobacco use x 54yrs up to 1ppd. Rare alcohol use. in 2014. Years smoked: 50 Smoking status: Former smoker Tobacco type: cigarettes Second hand tobacco smoke exposure: Yes Smoking end date: 02/27/13 Alcohol intake: never Substance use: never Gender identity (if verbalized by the patient): Female Spiritual care concerns: No Agree to blood products: No Exam Narrative: GENERAL: Well-appearing, well-nourished, and in no acute distress. HEAD: Normocephalic, atraumatic. EYES: PERRLA and EOMI. ENT: Nares clear, no rhinorrhea or epistaxis. Mucous membranes moist. EXTREMITIES: Normal range of motion. No edema. Edematous left ring finger with ring in place proximal phalanx SKIN: Warm, dry, no rash. NEURO: No focal deficits. Alert and oriented x3. Neurovascularly intact. Capillary refill less than 2 seconds PSYCH: Normal mood and affect. Course Course Emergency Course: Patient's ring was removed she is neurovascularly intact pre and post procedure will follow up on an outpatient basis felt appropriate for outpatient reevaluation ABCs and vital signs intact and stable Procedures Other Procedure Procedure 1: Other Procedure: Ring removed from the left ring finger using a ring cutter neurovascularly intact pre and post procedure no complication Medical Decision Making MDM Narrative Medical decision making narrative: Patients injury or pain is consistent with musculoskeletal etiology. No signs of neurological o
[2020-11-04 10:41] VITALS: BP 125/108; PULSE 71; RESP 18; TEMP 37.1; O2SAT 98
== END 2020-11-04 11:17 | disposition home or self-care (01) ==
PROVIDERS: Emergency Provider Emergency Medicine; PCP Internal Medicine
DX: S60.454A Superficial foreign body of right ring finger, initial encounter (principal); I13.0 Hypertensive heart and chronic kidney disease with heart failure and stage 1 through stage 4 chronic kidney disease, or unspecified chronic kidney disease; E11.22 Type 2 diabetes mellitus with diabetic chronic kidney disease; N18.9 Chronic kidney disease, unspecified; I50.9 Heart failure, unspecified; I69.351 Hemiplegia and hemiparesis following cerebral infarction affecting right dominant side; E78.5 Hyperlipidemia, unspecified; G47.30 Sleep apnea, unspecified; Z87.891 Personal history of nicotine dependence; W49.04XA Ring or other jewelry causing external constriction, initial encounter
CPT/HCPCS: 99282

== ENCOUNTER 2022-06-01 12:25 | Outpatient (CLI) | payer MEDICARE, SELFPAY ==
[2022-06-01 13:25] VITALS: PULSE 81; O2SAT 96
[2022-06-01 13:28] VITALS: PULSE 90; O2SAT 87
[2022-06-01 13:30] VITALS: PULSE 90; O2SAT 88
[2022-06-01 13:32] VITALS: PULSE 90; O2SAT 92
--- NOTE | 2022-06-01 13:41 | HOMEO2EVAL ---
Evaluation was performed at [facility] Home Oxygen Evaluation RC: Home Oxygen (O2) Evaluation Start: 06/01/22 13:39 Freq: Status: Active Protocol: RPE Activity Type Activity Date Activity User E-sign Co-sign Detail Recorded Client Recorded Date Recorded By Document 06/01/22 13:25 KRM [email or web address] 06/01/22 13:41 KRM Document 06/01/22 13:28 [email or web address] [email or web address] 06/01/22 13:41 KRM Document 06/01/22 13:30 [email or web address] [email or web address] 06/01/22 13:41 KRM Document 06/01/22 13:32 [email or web address] [email or web address] 06/01/22 13:41 KRM 06/01/22 06/01/22 06/01/22 13:25 13:28 13:30 Home O2 Evaluation [Oxygen] -Test Phase Resting Exercise Exercise -Oxygen Delivery Room Air Room Air Nasal Cannula -Oxygen Flow Rate (L/min) 1 [Pulse Oximetry] -Pulse Oximetry (90-100 %) 96 87 L 88 L [Pulse Rate] -Pulse Rate (60-100 beats/min) 81 90 90 [Evaluation] -Activity Tolerance Fair Fair [Exercise] -Ambulation Distance (feet) -Ambulation Distance (meters) [Comments] -Home Oxygen Evaluation Comments [Charges] -Treatment Charges 06/01/22 13:32 Home O2 Evaluation [Oxygen] -Test Phase Exercise -Oxygen Delivery Nasal Cannula -Oxygen Flow Rate (L/min) 2 [Pulse Oximetry] -Pulse Oximetry (90-100 %) 92 [Pulse Rate] -Pulse Rate (60-100 beats/min) 90 [Evaluation] -Activity Tolerance Fair [Exercise] -Ambulation Distance (feet) 75 -Ambulation Distance (meters) 22.85 [Comments] -Home Oxygen Evaluation Comments PT. REQUIRES 2LPM O2 WITH ACTIVITY. [Charges] -Treatment Charges O2 Evaluation - Outpatient
== END 2022-06-01 12:26 | disposition home or self-care (01) ==
PROVIDERS: PCP Internal Medicine; Visit Provider Nurse Practitioner Family
DX: Z99.81 Dependence on supplemental oxygen (principal)
CPT/HCPCS: 94618

== ENCOUNTER 2022-06-27 08:08 | Outpatient (CLI) | payer MEDICARE, SELFPAY ==
--- NOTE | ~2022-06-27 | CT_ITS ---
CT Scan of the Chest without Contrast: Clinical Indication: Lung cancer screening, smoking history Technique: Contiguous sections were acquired throughout the chest without intravenous contrast. Dose reduction technique was used on this scan by utilizing automated exposure control and iterative recon struction technique. The dose-length product (DLP) was 69.49 mGy-cm. COMPARISON: 02/22/2018, 11/06/2017 Findings: There is no evidence of any significant mediastinal, hilar or axillary lymphadenopathy. Small calcifi ed mediastinal lymph nodes are present. There are atherosclerotic calcifications of the aorta and cor onary vessels. There is no evidence of pleural or pericardial effusion. There is advanced emphysema. Multiple scattered calcified granulomas are present. There is probable c hronic left basilar atelectatic change. Images through the upper abdomen reveal markedly atrophic left kidney. Impression: Lung RADS 2: Benign appearance. 12 month follow-up screening CT advised. Advanced emphysema and probable chronic left basilar atelectatic change. Reviewed, dictated and finalized at location . Impression: Lung RADS 2: Benign appearance. 12 month follow-up screening CT advised. Advanced emphysema and probable chronic left basilar atelectatic change.
[2022-06-27 09:05] LABS: Basophils Absolute Auto 0.1 K/mm3 (0.0-0.1); Basophils Percent Auto 0.7 % (0.2-1.2); Eosinophils Absolute Auto 0.3 K/mm3 (0-0.3); Eosinophils Percent Auto 2.3 % (0-4.4); Hematocrit 39.1 % (37.0-47.0); Hemoglobin 12.3 g/dL (12.0-15.0); Immature Granulocyte Absolute 0.15 K/mm3 (0.00-0.031); Immature Granulocyte Percent A 1.4 % (0-0.5); Lymphocytes Absolute Auto 0.58 K/mm3 (0.9-3.2); Lymphocytes Percent Auto 5.3 % (18.3-44.2); Mean Corpuscular HGB Conc 31.5 g/dl (32-36); Mean Corpuscular Hemoglobin 27.3 pg (26-34); Mean Corpuscular Volume 86.9 fl (80-100); Mean Platelet Volume 9.3 fl (7.4-10.4); Monocytes Absolute Auto 0.6 K/mm3 (0.1-0.6); Monocytes Percent Auto 5.3 % (2.6-8.5); Neutrophils Absolute Auto 9.3 K/mm3 (1.3-6.7); Platelet Count Result 156 k/mm3 (150-375); Red Cell Distribution Width 17.4 % (11.5-14.5)
[2022-06-27 09:19] LABS: Alanine Aminotransferase 12 U/L (6-35); Albumin Level 4.4 g/dL (3.5-5.1); Alkaline Phosphatase 95 U/L (38-126); Anion Gap 12 mmol/L (8-16); Aspartate Amino Transferase 17 U/L (14-36); Bilirubin,Total 0.6 mg/dL (0.2-1.3); Blood Urea Nitrogen 44 mg/dL (7-17); Calcium 9.2 mg/dL (8.4-10.2); Carbon Dioxide 18 mmol/L (22-30); Chloride 109 mmol/L (98-107); Estimated Glomerular Filt Rate 10; Glucose 98 mg/dL (65-110); Sodium 139 mmol/L (137-145)
== END 2022-06-27 08:09 | disposition home or self-care (01) ==
PROVIDERS: PCP Internal Medicine; Referring Provider Nurse Practitioner Family; Visit Provider Nurse Practitioner Family
DX: Z12.2 Encounter for screening for malignant neoplasm of respiratory organs (principal); Z87.891 Personal history of nicotine dependence; J43.9 Emphysema, unspecified; R09.02 Hypoxemia; I10 Essential (primary) hypertension
CPT/HCPCS: 36415; 71271; 80053; 84443; 85025

== ENCOUNTER 2022-10-24 12:04 | Outpatient (CLI) | payer MEDICARE, SELFPAY ==
[2022-10-24 14:16] LABS: Hematocrit 41.2 % (37.0-47.0); Hemoglobin 12.9 g/dL (12.0-15.0); Mean Corpuscular HGB Conc 31.3 g/dl (32-36); Mean Corpuscular Hemoglobin 27.4 pg (26-34); Mean Corpuscular Volume 87.7 fl (80-100); Mean Platelet Volume 11.1 fl (7.4-10.4); Platelet Count Result 149 k/mm3 (150-375); Red Cell Distribution Width 15.6 % (11.5-14.5); White Blood Count 12.3 K/mm3 (4.5-10.0)
[2022-10-24 14:29] LABS: Alanine Aminotransferase 11 U/L (6-35); Albumin Level 4.4 g/dL (3.5-5.1); Alkaline Phosphatase 96 U/L (38-126); Anion Gap 16 mmol/L (8-16); Aspartate Amino Transferase 18 U/L (14-36); Bilirubin,Total 0.5 mg/dL (0.2-1.3); Blood Urea Nitrogen 50 mg/dL (7-17); Calcium 9.1 mg/dL (8.4-10.2); Carbon Dioxide 15 mmol/L (22-30); Chloride 108 mmol/L (98-107); Estimated Glomerular Filt Rate 7; Glucose 81 mg/dL (65-110); Potassium 3.6 mmol/L (3.4-5.0); Sodium 139 mmol/L (137-145)
[2022-10-24 14:30] LABS: Appearance Urine Clear (Clear); Bacteria Urine None Seen /hpf; Bilirubin Urine Negative (Negative); Blood Urine 1+ (Negative); Color Urine Yellow (Yellow); Glucose Urine UA 2+ mg/dL (Negative); Hyaline Casts Urine Present /lpf; Ketones Urine Negative (Negative); Leukocyte Esterase Ur Negative LEU/UL (NEGATIVE); Nitrate Urine Negative (Negative); Protein Urine 3+ mg/dL (Negative); RBC Urine 0-2 /hpf (0-2); Specific Grav Ur 1.018 (1.001-1.035); Squamous Epithelial Cell Urine Few /hpf (Few); Urobilinogen Urine 0.2 mg/dL (<2.0); pH Urine 5.5 (5.0-9.0)
[2022-10-24 14:32] LABS: Add Urine Microscopic? YES
[2022-10-24 15:19] LABS: Band Neutrophils Percent 1 % (0-6); Lymphocytes Absolute Manual 0.24 K/mm3 (1.1-4.5); Monocytes Absolute Manual 0.36 K/mm3 (0.1-0.90); Monocytes Percent Manual 3 % (3-9); Neutrophils Absolute Manual 11.68 K/mm3 (1.7-7.2); Neutrophils Percent Manual 94 % (46-73); Nucleated Red Blood Cells 2 %; Total Cells Counted 100
[2022-10-24 15:20] LABS: Anisocytosis 1+ (NORMAL); Hypochromasia 1+ (NORMAL); Schistocytes None Seen (NORMAL)
== END 2022-10-24 12:05 | disposition home or self-care (01) ==
PROVIDERS: PCP Nurse Practitioner Family; Visit Provider Nurse Practitioner Family
DX: R39.9 Unspecified symptoms and signs involving the genitourinary system (principal); R09.02 Hypoxemia; N18.4 Chronic kidney disease, stage 4 (severe)
CPT/HCPCS: 36415; 80053; 81001; 85025; 87086

== ENCOUNTER 2023-05-25 08:39 | Outpatient (CLI) | payer MEDICARE, SELFPAY ==
--- NOTE | ~2023-05-25 | XR_ITS ---
XR chest 2V 05/25/2023 09:02 Indication: Chronic obstructive pulmonary disease. Procedure: 2 view chest Comparison: 05/20/2020 Findings: Borderline heart size. Mild pulmonary vascular congestion. No significant effusion or pneum othorax. No acute osseous abnormality. There is atherosclerosis of the aorta. No acute osseous abnorm ality. Impression: 1: Mild pulmonary vascular congestion. Reviewed, dictated and finalized at location L. Impression: 1: Mild pulmonary vascular congestion.
== END 2023-05-25 08:40 ==
PROVIDERS: PCP Nurse Practitioner Family; Visit Provider Nurse Practitioner Family
DX: R09.89 Other specified symptoms and signs involving the circulatory and respiratory systems (principal); J44.1 Chronic obstructive pulmonary disease with (acute) exacerbation
CPT/HCPCS: 71046

== ENCOUNTER 2023-06-14 15:58 | Emergency (ER) | payer MEDICARE, SELFPAY ==
[2023-06-14] VITALS (7 sets, daily range): BP systolic 155–207; BP diastolic 85–105; PULSE 78–89; RESP 15–26; TEMP 36.9; O2SAT 96–100
--- NOTE | ~2023-06-14 | XR_ITS ---
EXAMINATION: XR chest 1V portable DATE: 06/14/2023 16:30 INDICATION: Chest pain. TECHNIQUE: A single frontal view of the chest was obtained. COMPARISON: Chest 2 views 05/25/2023, chest CT 06/27/2022 FINDINGS: Calcified pulmonary nodules are consistent with old granulomatous disease. There are lucenc ies in the lungs, consistent with emphysema. There is chronic left-sided pleural thickening and blunt ing of left lateral costophrenic angle. No pleural effusion or pneumothorax. The heart size is normal . IMPRESSION: 1. Emphysema. 2. Chronic scarring at left lung base. Reviewed, dictated and finalized at location E.
--- NOTE | ~2023-06-14 | CT_ITS ---
EXAMINATION: CT abdomen pelvis wo con DATE: 06/14/2023 18:31 INDICATION: Flank pain. TECHNIQUE: Computed tomography (CT) of the abdomen and pelvis was performed without intravenous contr ast. Automated exposure control and iterative reconstruction technique were employed. The dose-length product was 199.23 mGy-cm. COMPARISON: None. FINDINGS: The visualized portions of the lung bases demonstrate emphysema and mild atelectasis. There is mild peripheral rounded atelectasis in left lower lobe. Calcified pulmonary nodules and calcified hilar lymph nodes are consistent with old granulomatous disease. There is pleural thickening in left hemithorax. No pleural effusion. The heart size is normal. There are coronary artery calcifications. No pericardial effusion. Calcifications in the liver and spleen are consistent with old granulomatou s disease. There are gallstones in the gallbladder, which is normal in size. The pancreas and adrenal glands are normal. There are widespread arterial calcifications. There is mild atrophy of right kidn ey and moderate atrophy of left kidney. There is diverticulosis of the colon without evidence of dive rticulitis. The appendix is normal. There are no pathologically enlarged lymph nodes. There is no blaine e intraperitoneal fluid. There is mild thoracic and lumbar spondylosis. IMPRESSION: 1. Cholelithiasis. No evidence of acute cholecystitis. Reviewed, dictated and finalized at location E.
--- NOTE | 2023-06-14 15:59 | ECG_ITS ---
SEE SCANNED COPY FOR CONFIRMED REPORT MTDD
[2023-06-14 16:20] LABS: Basophils Absolute Auto 0.1 K/mm3 (0.0-0.1); Basophils Percent Auto 0.5 % (0.2-1.2); Eosinophils Absolute Auto 0.2 K/mm3 (0-0.3); Eosinophils Percent Auto 1.5 % (0-4.4); Hematocrit 33.3 % (37.0-47.0); Hemoglobin 10.6 g/dL (12.0-15.0); Immature Granulocyte Absolute 0.16 K/mm3 (0.00-0.031); Lymphocytes Absolute Auto 0.51 K/mm3 (0.9-3.2); Lymphocytes Percent Auto 3.1 % (18.3-44.2); Mean Corpuscular HGB Conc 31.8 g/dl (32-36); Mean Corpuscular Hemoglobin 28.5 pg (26-34); Mean Corpuscular Volume 89.5 fl (80-100); Mean Platelet Volume 9.6 fl (7.4-10.4); Monocytes Absolute Auto 0.8 K/mm3 (0.1-0.6); Monocytes Percent Auto 4.5 % (2.6-8.5); Neutrophils Absolute Auto 14.8 K/mm3 (1.3-6.7); Neutrophils Percent Auto 89.4 % (45.5-73.1); Platelet Count Result 201 k/mm3 (150-375); Red Blood Count 3.72 M/mm3 (4.2-5.4); Red Cell Distribution Width 15.8 % (11.5-14.5); White Blood Count 16.5 K/mm3 (4.5-10.0)
[2023-06-14 16:30] LABS: INR 1.1
[2023-06-14 16:31] LABS: Alanine Aminotransferase 11 U/L (6-35); Albumin Level 4.6 g/dL (3.5-5.1); Alkaline Phosphatase 82 U/L (38-126); Anion Gap 19 mmol/L (4-12); Aspartate Amino Transferase 16 U/L (14-36); Bilirubin,Total 0.4 mg/dL (0.2-1.3); Blood Urea Nitrogen 82 mg/dL (7-17); Calcium 9.5 mg/dL (8.4-10.2); Carbon Dioxide 10 mmol/L (22-30); Chloride 110 mmol/L (98-107); Estimated Glomerular Filt Rate 4; Glucose 137 mg/dL (65-110); Lipase 168 U/L (23-300); Partial Thromboplastin Time 31.2 Seconds (22.3-36.8); Potassium 3.7 mmol/L (3.4-5.0); Sodium 139 mmol/L (137-145)
[2023-06-14 16:46] LABS: Troponin I 0.038 ng/mL (0.000-0.034)
[2023-06-14 17:00] LABS: Platelet Estimate Adequate (Adequate)
[2023-06-14 17:01] LABS: Anisocytosis 2+; Hypochromasia 1+; Schistocytes None Seen
[2023-06-14 18:06] LABS: Appearance Urine Clear (Clear); Bacteria Urine None Seen /hpf; Bilirubin Urine Negative (Negative); Blood Urine 1+ (Negative); Color Urine Yellow (Yellow); Glucose Urine UA 1+ mg/dL (Negative); Ketones Urine Negative (Negative); Leukocyte Esterase Ur Trace LEU/UL (Negative); Nitrate Urine Negative (Negative); Non Pathogenic Casts 0-2; Protein Urine 2+ mg/dL (Negative); RBC Urine 0-2 /hpf (0-2); Specific Grav Ur 1.012 (1.001-1.035); Squamous Epithelial Cell Urine Few /hpf (Few); Urobilinogen Urine 0.2 mg/dL (<2.0); pH Urine 5.5 (5.0-9.0)
[2023-06-14 18:12] LABS: Add Urine Microscopic? YES
[2023-06-14 18:35] LABS: Influenza A QL RT-PCR Negative (Negative); Influenza B QL RT-PCR Negative (Negative); RSV RNA, RT-PCR Negative (Negative); SARS-CoV-2 RNA PCR Negative (Negative)
--- NOTE | 2023-06-14 19:23 | ED.GENADULT ---
HPI - General Adult General Chief complaint: Chest Pain Stated complaint: chest pain Time Seen by Provider: 06/14/23 17:09 History of Present Illness HPI narrative: Patient is a 72-year-old female who presents ER with multiple complaints. She reports initially she started having cramping and pain in her right arm and then into her back/chest / abdomen. No aggravating or alleviating factors. No fevers or chills or sweats. Patient has history of CML in chronic kidney disease. She does not get dialysis. She reports decreased urination as well as pain in her flank. Has history of kidney stones. No dysuria. Related Data Allergies Allergy/AdvReac Type Severity Reaction Status Date / Time Penicillins Allergy Mild Vomiting Verified 05/02/23 14:40 Review of Systems Review of Systems: All systems reviewed & are unremarkable except as noted in HPI and below Constitutional: Constitutional: Reports no additional constitutional complaints Cardiovascular: Cardiovascular: Reports no additional cardiovascular complaints Respiratory: Respiratory: Reports no additional respiratory complaints Gastrointestinal: Gastrointestinal: Reports no additional gastrointestinal complaints Genitourinary: Genitourinary: Denies nocturia, Denies dysuria and Reports flank pain Comments: Decreased urination Musculoskeletal: Musculoskeletal: Reports back pain, Reports myalgias, Denies arthralgias and Denies joint swelling Integumentary/Breasts: Skin/Breast: Reports system reviewed and no additional complaints, except as docu PMFSH Past Medical History Medical History Acute hypokalemia Acute respiratory failure with hypoxia Anemia Carotid artery disease Carotid bruit CHF (congestive heart failure) Chronic renal insufficiency Chronic respiratory failure 4L chronically CKD (chronic kidney disease) Hx of one kidney CML (chronic myelocytic leukemia) Congestive heart failure COPD (chronic obstructive pulmonary disease) COPD exacerbation CVA (cerebral vascular accident) In 2009, 2011 with right sided weakness mostly in the right hand weakness Diabetes type 2, controlled Elevated troponin Former smoker Hyperlipidemia Hypertension Mixed hyperlipidemia JAEL (obstructive sleep apnea) Surgical History Surgical History H/O: hysterectomy Hx of right knee surgery Family History Family History Father Family history of cardiovascular disease Mother Family history of chronic obstructive pulmonary disease Family history of lung cancer Sibling Family history of chronic obstructive pulmonary disease Patient's sister is in good health Other Family history of malignant neoplasm of uterus Social History Social History Social History: Tobacco use x 54yrs up to 1ppd. Rare alcohol use. in 2013. Smoking packs per day: 1 Smoking cigarettes per day: 20.0 Years smoked: 54 Smoking pack-years: 54.00 Smoking status: Former smoker Tobacco type: cigarettes Second hand tobacco smoke exposure: Yes Smoking end date: 02/27/15 Alcohol intake: never Substance use: never Lack of Transportation: No Lack of Food: Never True Current Housing: I Have Housing Concerned About Future Housing: No Difficulty Paying Gas/Electric Bills: No Difficulty Paying for Meds: No Currently Unemployed: No Education: Trade/Vocational Certificate Difficulty w/ Childcare or Family Care: No Gender identity (if verbalized by the patient): Female Spiritual care concerns: No Agree to blood products: No Exam Narrative: GENERAL: chronically ill-appearing, well-nourished, and in no acute distress. HEAD: Normocephalic, atraumatic. ENT: Mucous membranes moist. CHEST: [place]
[2023-06-14] MEDS: MORPHINE SULFATE (*CRX) 4 MG/ML INJ IV PUSH (19:46)
--- NOTE | 2023-06-14 20:00 | PC.NURSE ---
Pt took bp cuff off because it was too tight . Bp cuff placed back on patient. Pt also took off NC oxygen, stating she only wears it when she feels bad. O2 checked - 96% RA.
--- NOTE | 2023-06-14 20:30 | PC.NURSE ---
Pt reported to hospitalist she does not want to stay overnight.
[2023-06-14 20:37] LABS: Troponin I 0.042 ng/mL (0.000-0.034)
[2023-06-14] MEDS: ONDANSETRON INJ 4 MG/2 ML VIAL IV PUSH (21:00)
== END 2023-06-14 21:15 | disposition left against medical advice (07) ==
LOC: ANHED 19:20 → ANHIMU 20:49
PROVIDERS: Emergency Medicine; Emergency Provider Emergency Medicine; PCP Nurse Practitioner Family
DX: N17.9 Acute kidney failure, unspecified (principal); N18.9 Chronic kidney disease, unspecified; E11.22 Type 2 diabetes mellitus with diabetic chronic kidney disease; I13.0 Hypertensive heart and chronic kidney disease with heart failure and stage 1 through stage 4 chronic kidney disease, or unspecified chronic kidney disease; N39.0 Urinary tract infection, site not specified; K80.20 Calculus of gallbladder without cholecystitis without obstruction; R79.89 Other specified abnormal findings of blood chemistry; C92.10 Chronic myeloid leukemia, BCR/ABL-positive, not having achieved remission; I50.9 Heart failure, unspecified; J96.10 Chronic respiratory failure, unspecified whether with hypoxia or hypercapnia; Z99.81 Dependence on supplemental oxygen; J43.9 Emphysema, unspecified; I69.931 Monoplegia of upper limb following unspecified cerebrovascular disease affecting right dominant side; E78.2 Mixed hyperlipidemia; G47.33 Obstructive sleep apnea (adult) (pediatric); Z87.891 Personal history of nicotine dependence; Z90.710 Acquired absence of both cervix and uterus; R94.31 Abnormal electrocardiogram [ECG] [EKG]
CPT/HCPCS: 36415; 71045; 74176; 80053; 81001; 83690; 84484; 85025; 85610; 85730; 87086; 87637; 93005; 96365; 96375; 99284; J0696; J2270; J2405

== ENCOUNTER 2023-06-15 08:30 | Emergency (ER) | payer MEDICARE, SELFPAY ==
[2023-06-15] VITALS (10 sets, daily range): BP systolic 102–170; BP diastolic 59–84; PULSE 62–80; RESP 8–18; TEMP 36.5; O2SAT 88–98
--- NOTE | ~2023-06-15 | CT_ITS ---
EXAMINATION: CT diagnostic chest wo con DATE: 06/15/2023 09:54 INDICATION: right chest wall pain TECHNIQUE: Computed tomography (CT) of the chest was performed without intravenous contrast. Addition al 3D reconstructions utilizing coronal maximum intensity projection (MIP) were performed. Automated exposure control and iterative reconstruction technique were employed. The dose-length product was 15 9.52 mGy-cm. COMPARISON: 06/27/2022 FINDINGS: Moderate emphysema. Unchanged chronic small loculated left pleural effusion with associated round ate lectasis at the posterior basilar right lower lobe. There are multiple calcified nodules predominantl y in the mid and lower lungs along with calcified bilateral hilar and mediastinal lymph nodes and a f ew scattered small hepatic and splenic calcific lesions all consistent with old granulomatous disease . No pneumonia, pulmonary edema, pneumothorax or right-sided pleural effusion. Heart size is normal. Atherosclerotic coronary artery calcification. No pericardial effusion. Small sliding-type hiatal her chip. Additional atherosclerotic calcifications along the normal caliber thoracic aorta and great vess els arising from the arch. No pathologically enlarged thoracic lymphadenopathy. Small amount of depen dently layering high attenuation sludge versus gallstones within the otherwise unremarkable gallbladd er. Mild thoracic spondylosis. Mildly displaced lateral right fourth rib fracture. No other definitiv e rib fractures although assessment is moderately limited by some motion artifact. IMPRESSION: 1. Mildly displaced lateral right fourth rib fracture. 2. Moderate emphysema. 3. Unchanged chronic small loculated right pleural effusion with peripheral round atelectasis at the posterior basilar right lower lobe. 4. Cholelithiasis. Reviewed, dictated and finalized at location A. IMPRESSION: 1. Mildly displaced lateral right fourth rib fracture. 2. Moderate emphysema. 3. Unchanged chronic small loculated right pleural effusion with peripheral rou nd atelectasis at the posterior basilar right lower lobe. 4. Cholelithiasis.
--- NOTE | ~2023-06-15 | US_ITS ---
EXAMINATION: US venous doppler UE RT DATE: 06/15/2023 10:14 INDICATION: Right upper limb pain TECHNIQUE: Grayscale images without and with compression and Doppler images of the right upper extrem ity veins were obtained. COMPARISON: None. FINDINGS: The right internal jugular vein, subclavian vein, axillary vein, brachial vein, basilic vein, cephali c vein, radial vein, and ulnar vein are patent. IMPRESSION: 1. Patent right upper extremity veins. No evidence of venous thrombosis. Reviewed, dictated and finalized at location A.
[2023-06-15 09:34] LABS: Basophils Absolute Auto 0.1 K/mm3 (0.0-0.1); Basophils Percent Auto 0.5 % (0.2-1.2); Eosinophils Percent Auto 0.2 % (0-4.4); Hematocrit 30.6 % (37.0-47.0); Hemoglobin 9.6 g/dL (12.0-15.0); Immature Granulocyte Absolute 0.09 K/mm3 (0.00-0.031); Immature Granulocyte Percent A 0.7 % (0-0.5); Lymphocytes Percent Auto 2.3 % (18.3-44.2); Mean Corpuscular HGB Conc 31.4 g/dl (32-36); Mean Corpuscular Hemoglobin 28.1 pg (26-34); Mean Corpuscular Volume 89.5 fl (80-100); Mean Platelet Volume 9.5 fl (7.4-10.4); Monocytes Absolute Auto 0.5 K/mm3 (0.1-0.6); Monocytes Percent Auto 3.5 % (2.6-8.5); Neutrophils Percent Auto 92.8 % (45.5-73.1); Platelet Count Result 172 k/mm3 (150-375); Red Blood Count 3.42 M/mm3 (4.2-5.4); Red Cell Distribution Width 15.8 % (11.5-14.5); White Blood Count 12.9 K/mm3 (4.5-10.0)
--- NOTE | 2023-06-15 09:44 | ED.GENADULT ---
HPI - General Adult General Chief complaint: Unspecified Stated complaint: pain in r side? gallstones? Time Seen by Provider: 06/15/23 09:17 History of Present Illness HPI narrative: 72-year-old female presenting to the emergency department for evaluation of persistent right arm pain. Patient was evaluated in the emergency department yesterday and patient had an elevated white blood cell count, and elevated troponin. Patient was recommended to stay for further evaluation and patient declined. Patient did return to the emergency department today seeking further workup and possible. Patient's daughter is also in process potentially getting the patient set up for hospice. Related Data Allergies Allergy/AdvReac Type Severity Reaction Status Date / Time Penicillins Allergy Mild Vomiting Verified 05/02/23 14:40 Review of Systems Review of Systems: All systems reviewed & are unremarkable except as noted in HPI and below PMFSH Past Medical History Medical History Acute hypokalemia Acute respiratory failure with hypoxia Anemia Carotid artery disease Carotid bruit CHF (congestive heart failure) Chronic renal insufficiency Chronic respiratory failure 4L chronically CKD (chronic kidney disease) Hx of one kidney CML (chronic myelocytic leukemia) Congestive heart failure COPD (chronic obstructive pulmonary disease) COPD exacerbation CVA (cerebral vascular accident) In 2009, 2011 with right sided weakness mostly in the right hand weakness Diabetes type 2, controlled Elevated troponin Former smoker Hyperlipidemia Hypertension Mixed hyperlipidemia JAEL (obstructive sleep apnea) Surgical History Surgical History H/O: hysterectomy Hx of right knee surgery Family History Family History Father Family history of cardiovascular disease Mother Family history of chronic obstructive pulmonary disease Family history of lung cancer Sibling Family history of chronic obstructive pulmonary disease Patient's sister is in good health Other Family history of malignant neoplasm of uterus Social History Social History Social History: Tobacco use x 54yrs up to 1ppd. Rare alcohol use. in 2013. Smoking packs per day: 1 Smoking cigarettes per day: 20.0 Years smoked: 54 Smoking pack-years: 54.00 Smoking status: Former smoker Tobacco type: cigarettes Second hand tobacco smoke exposure: Yes Smoking end date: 02/27/15 Alcohol intake: never Substance use: never Lack of Transportation: No Lack of Food: Never True Current Housing: I Have Housing Concerned About Future Housing: No Difficulty Paying Gas/Electric Bills: No Difficulty Paying for Meds: No Currently Unemployed: No Education: Trade/Vocational Certificate Difficulty w/ Childcare or Family Care: No Gender identity (if verbalized by the patient): Female Spiritual care concerns: No Agree to blood products: No Exam Narrative: APPEARANCE: Well appearing, no pain, no distress, well-nourished. HEAD: normocephalic, atraumatic. EYES: PERRLA/EOMI, conjunctivae clear. NOSE: Normal no drainage EARS:TMS clear with good light reflex. THROAT: Pharynx clear, no exudate. NECK: Supple. No adenopathy, no masses. RESPIRATORY: Airway patent, respirations nonlabored. Clear to auscultation bilaterally, no rales, rhonchi, wheezing. CARDIOVASCULAR: Regular rate and rhythm without murmurs rubs or gallops. ABDOMINAL: Soft, nontender, nondistended, normal bowel sounds MUSCULOSKELETAL: Reproducible chest wall tenderness to palpation NEURO: Alert. Cranial nerves II through XII intact. Grossly intact SKIN: Warm, dry. Normal Color Course Vital Signs Vital signs: Vital Signs Temperature
[2023-06-15 09:45] LABS: INR 1.1; Partial Thromboplastin Time 30.6 Seconds (22.3-36.8); Prothrombin Time 15.1 Seconds (11.1-14.7)
--- NOTE | 2023-06-15 09:45 | ECG_ITS ---
SEE SCANNED COPY FOR CONFIRMED REPORT MTDD
[2023-06-15 09:46] LABS: Alanine Aminotransferase 10 U/L (6-35); Albumin Level 4.2 g/dL (3.5-5.1); Alkaline Phosphatase 79 U/L (38-126); Anion Gap 17 mmol/L (4-12); Aspartate Amino Transferase 15 U/L (14-36); Bilirubin,Total 0.5 mg/dL (0.2-1.3); Blood Urea Nitrogen 82 mg/dL (7-17); Calcium 9.4 mg/dL (8.4-10.2); Carbon Dioxide 9 mmol/L (22-30); Chloride 111 mmol/L (98-107); Estimated Glomerular Filt Rate 4; Glucose 127 mg/dL (65-110); Potassium 3.6 mmol/L (3.4-5.0); Sodium 137 mmol/L (137-145)
[2023-06-15 09:59] LABS: Troponin I 0.042 ng/mL (0.000-0.034)
--- NOTE | 2023-06-15 10:03 | PC.NURSE ---
Pt in imaging, will obtain EKG when she returns to room.
== END 2023-06-15 11:44 | disposition home or self-care (01) ==
PROVIDERS: Emergency Provider Emergency Medicine; PCP Nurse Practitioner Family
DX: S22.31XA Fracture of one rib, right side, initial encounter for closed fracture (principal); R07.89 Other chest pain; C92.10 Chronic myeloid leukemia, BCR/ABL-positive, not having achieved remission; I25.10 Atherosclerotic heart disease of native coronary artery without angina pectoris; E11.22 Type 2 diabetes mellitus with diabetic chronic kidney disease; I13.0 Hypertensive heart and chronic kidney disease with heart failure and stage 1 through stage 4 chronic kidney disease, or unspecified chronic kidney disease; N18.9 Chronic kidney disease, unspecified; I50.9 Heart failure, unspecified; I69.931 Monoplegia of upper limb following unspecified cerebrovascular disease affecting right dominant side; J96.10 Chronic respiratory failure, unspecified whether with hypoxia or hypercapnia; J43.9 Emphysema, unspecified; D64.9 Anemia, unspecified; E78.2 Mixed hyperlipidemia; G47.33 Obstructive sleep apnea (adult) (pediatric); Z90.710 Acquired absence of both cervix and uterus; Z87.891 Personal history of nicotine dependence; K80.20 Calculus of gallbladder without cholecystitis without obstruction; R94.31 Abnormal electrocardiogram [ECG] [EKG]; X58.XXXA Exposure to other specified factors, initial encounter
CPT/HCPCS: 36415; 71250; 80053; 84484; 85025; 85610; 85730; 93005; 93971; 99284

== ENCOUNTER 2023-11-13 18:22 | Inpatient (IN) | payer MEDICARE, SELFPAY ==
[2023-11-13] VITALS (8 sets, daily range): BP systolic 163–226; BP diastolic 98–105; PULSE 92–104; RESP 22–28; O2SAT 98–99
--- NOTE | ~2023-11-13 | XR_ITS ---
EXAMINATION: XR chest 1V portable Exam Date/Time: 11/13/2023 19:10 CDT HISTORY: SOB, HTN Comparison: 06/14/2023; CT chest 06/15/2023. RESULT: Lines, tubes, and devices: None. Lungs and pleura: Moderate diffuse reticular opacities, slightly increased. Emphysematous changes. N ew minor fissure fluid. Mild left costophrenic angle blunting, slightly increased. Cardiomediastinal silhouette: Stable. Other: No acute osseous or upper abdominal finding. IMPRESSION: Pulmonary opacities may represent mild interstitial edema overlying chronic emphysematous change. Sma ll left pleural effusion. Reviewed, dictated and finalized at location K. IMPRESSION: Pulmonary opacities may represent mild interstitial edema overlying chronic emp hysematous change. Small left pleural effusion.
--- NOTE | 2023-11-13 18:36 | ECG_ITS ---
Test Date: 2023-11-13 18:42:39 Measurements Intervals [place] Rate: 94 P: 65 LA: 189 QRS: 62 QRSD: 93 T: 232 QT: 356 QTc: 446 Interpretive Statements SINUS RHYTHM POSSIBLE LEFT ATRIAL ENLARGEMENT VOLTAGE CRITERIA FOR LVH ST DEVIATION AND MODERATE T-WAVE ABNORMALITY, CONSIDER LATERAL ISCHEMIA ST DEVIATION AND MODERATE T-WAVE ABNORMALITY, CONSIDER INFERIOR ISCHEMIA BASELINE ARTIFACT- I, II, III, AVR, AVL, AVF, V1-V6 ABNORMAL ECG No previous ECG available for comparison Electronically Signed On 11-13-2023 19:58:21 CDT by Kasi Arambula D.O.
[2023-11-13 18:45] LABS: Basophils Absolute Auto 0.1 K/mm3 (0.0-0.1); Basophils Percent Auto 0.5 % (0.2-1.2); Eosinophils Absolute Auto 0.1 K/mm3 (0-0.3); Eosinophils Percent Auto 0.6 % (0-4.4); Hematocrit 30.2 % (37.0-47.0); Hemoglobin 9.6 g/dL (12.0-15.0); Immature Granulocyte Absolute 0.28 K/mm3 (0.00-0.031); Immature Granulocyte Percent A 1.4 % (0-0.5); Lymphocytes Absolute Auto 0.44 K/mm3 (0.9-3.2); Lymphocytes Percent Auto 2.2 % (18.3-44.2); Mean Corpuscular HGB Conc 31.8 g/dl (32-36); Mean Corpuscular Hemoglobin 29.6 pg (26-34); Mean Corpuscular Volume 93.2 fl (80-100); Mean Platelet Volume 11.8 fl (7.4-10.4); Monocytes Absolute Auto 0.8 K/mm3 (0.1-0.6); Neutrophils Absolute Auto 18.5 K/mm3 (1.3-6.7); Neutrophils Percent Auto 91.3 % (45.5-73.1); Platelet Count Result 130 k/mm3 (150-375); Red Blood Count 3.24 M/mm3 (4.2-5.4); Red Cell Distribution Width 15.9 % (11.5-14.5); White Blood Count 20.3 K/mm3 (4.5-10.0)
[2023-11-13 18:55] LABS: Alanine Aminotransferase 11 U/L (6-35); Albumin Level 4.1 g/dL (3.5-5.1); Alkaline Phosphatase 104 U/L (38-126); Anion Gap 17 mmol/L (4-12); Aspartate Amino Transferase 18 U/L (14-36); Bilirubin,Total 0.4 mg/dL (0.2-1.3); Blood Urea Nitrogen 63 mg/dL (7-17); Calcium 9.2 mg/dL (8.4-10.2); Carbon Dioxide 9 mmol/L (22-30); Chloride 111 mmol/L (98-107); Estimated Glomerular Filt Rate 5; Glucose 125 mg/dL (65-110); Potassium 3.6 mmol/L (3.4-5.0); Sodium 137 mmol/L (137-145)
[2023-11-13] MEDS: ALBUTEROL SULFATE NEB 2.5 MG/3 ML INH INHALATION (19:06)
[2023-11-13 19:44] LABS: Alveolar/Arterial O2 Gradient 133.6 mmHg; Base Excess ABG -13.8 mEq/l (+/-2.0); Fractional Inspired Oxygen 36 %; HCO3 ABG 12.3 mEq/l (22.0-26.0); Oxygen Content ABG 13.7 %vol (16.0-22.0); Oxygen Saturation ABG 95.5 % (95.0-100.0); Oxyhemoglobin 95.6 % THb (90.0-100.0); PCO2 ABG 29.4 mmHg (35.0-45.0); PO2 FiO2 Ratio Arterial Blood 2.47 %; Total Hemoglobin 10.1 g/dL (12.0-18.0)
[2023-11-13 19:45] LABS: Device NASAL CANNULA; Modified Allen's Test Pass; Site Drawn LEFT RADIAL
[2023-11-13 19:46] LABS: Lactic Acid Reflex 0.5 mmol/L (0.7-2.0)
[2023-11-13 19:56] LABS: NT Pro B Type Natriuretic Pept 25800 pg/mL (19.9-100)
[2023-11-13 20:03] LABS: Troponin I 0.083 ng/mL (0.000-0.034)
[2023-11-13] MEDS: ASPIRIN 81 MG CHEWABLE TABLET 324 MG PO (20:39)
[2023-11-13] MEDS: hydrALAZINE HCL 20 MG/ML VIAL 10 MG IV PUSH (20:39)
--- NOTE | 2023-11-13 21:06 | ED.GENADULT ---
HPI - General Adult General Chief complaint: Shortness of Breath/Dyspnea Stated complaint: SOB Time Seen by Provider: 11/13/23 19:02 History of Present Illness HPI narrative: Patient is a 70-year-old female who presents emergency department with chief complaint of shortness of breath. Patient has prior history of COPD is oxygen dependent also has history of chronic renal insufficiency. The patient states that she does not want to do dialysis does not want to be intubated does not want invasive procedures. The patient reports she had been on hospice before but they discontinued hospice as she did not have decline in her status. Related Data Allergies Allergy/AdvReac Type Severity Reaction Status Date / Time Penicillins Allergy Mild Vomiting Verified 11/13/23 18:38 Review of Systems Review of Systems: A 10 system review of systems was completed on the patient and is negative except for what is stated in the HPI. Nursing and ancillary documentation was reviewed. FORMERLY [facility], [facility] Past Medical History Medical History Acute hypokalemia Acute respiratory failure with hypoxia Anemia Carotid artery disease Carotid bruit CHF (congestive heart failure) Chronic renal insufficiency Chronic respiratory failure 4L chronically CKD (chronic kidney disease) Hx of one kidney CML (chronic myelocytic leukemia) Congestive heart failure COPD (chronic obstructive pulmonary disease) COPD exacerbation CVA (cerebral vascular accident) In 2009, 2011 with right sided weakness mostly in the right hand weakness Diabetes type 2, controlled Elevated troponin Former smoker Hyperlipidemia Hypertension Mixed hyperlipidemia JAEL (obstructive sleep apnea) Surgical History Surgical History H/O: hysterectomy Hx of right knee surgery Family History Family History Father Family history of cardiovascular disease Mother Family history of chronic obstructive pulmonary disease Family history of lung cancer Sibling Family history of chronic obstructive pulmonary disease Patient's sister is in good health Other Family history of malignant neoplasm of uterus Social History Social History Social History: Tobacco use x 54yrs up to 1ppd. Rare alcohol use. in 2013. Smoking packs per day: 1 Smoking cigarettes per day: 20.0 Years smoked: 54 Smoking pack-years: 54.00 Smoking status: Former smoker Tobacco type: cigarettes Second hand tobacco smoke exposure: Yes Smoking end date: 02/27/15 Alcohol intake: never Substance use: never Lack of Transportation: No Lack of Food: Never True Current Housing: I Have Housing Concerned About Future Housing: No Difficulty Paying Gas/Electric Bills: No Difficulty Paying for Meds: No Currently Unemployed: No Education: Trade/Vocational Certificate Difficulty w/ Childcare or Family Care: No Gender identity (if verbalized by the patient): Female Spiritual care concerns: No Agree to blood products: No Exam Narrative: GENERAL: Well-appearing, well-nourished, and in no acute distress. HEAD: Normocephalic, atraumatic. EYES: PERRLA and EOMI. ENT: Nares clear, no rhinorrhea or epistaxis. Mucous membranes moist. NECK: Supple. CHEST: Clear to auscultation. No respiratory distress. HEART: Regular rate and rhythm. No murmur heard. Normal peripheral pulses. ABDOMEN: Soft, nontender, nondistended, normal active bowel sounds. EXTREMITIES: Normal range of motion. No edema. SKIN: Warm, dry, no rash. NEURO: No focal deficits. Alert and oriented x3. PSYCH: Normal mood and affect. Course Vital Signs Vital signs: Vital Signs Pulse Rate 99 11/13/23 18:30 Respiratory Rate 28 H 11/13/23 18:3
[2023-11-13] MEDS: FUROSEMIDE INJ 40 MG/4 ML VIAL IV PUSH (21:56)
[2023-11-13] MEDS: IPRATROPIUM 0.5 MG/ALBUTEROL SULFATE 2.5 MG AMPUL.NEB 3 ML INHALATION (22:04)
--- NOTE | 2023-11-13 22:27 | PC.NURSE ---
Hospitalist verbal order ok to send pt with higher BP readings up to room.
--- NOTE | 2023-11-13 22:40 | ADMGEN ---
This patient, Magdalena Thomas, was admitted to IMU Room 213-01. Patient/family oriented to hospital policies and general routines including ID bracelet, bed and alarms, visiting hours, pain management, procedures, bathroom and other care routines, personal items, smoking policy, room service/diet, and visiting hours. Information on how to activate the Rapid Response Team has been discussed. Patient/Family are encouraged to report perceived risks to care and to ask questions if they do not understand what they are told or what they should do.
[2023-11-13 23:55] LABS: Troponin I 0.102 ng/mL (0.000-0.034)
[2023-11-14] VITALS (27 sets, daily range): BP systolic 168–210; BP diastolic 56–97; PULSE 94–115; RESP 22–32; TEMP 36.1–37; O2SAT 94–100; BMI 22.9
--- NOTE | 2023-11-14 | ECHO_ITS ---
Patient Info Name: Magdalena Thomas Age: 73 years : 1950 Gender: Female Ht: 57 in Wt: 108 lbs BSA: 1.41 m2 HR: 98 bpm BP: 189 / 88 mmHg Technical Quality: Fair Exam Date: 11/14/2023 10:19 AM Exam Location: Echo Lab Patient Status: Inpatient Admit Date: 11/14/2023 Staff Ordering Physician: Niels Joseph MD Helper Shear Operator: Mimi Haq RDCS Attending Provider: Ellyn Maloney MD Exam Type: CA echo doppler color flow Study Info Indications - ELEVATED TROPONIN R06.02 - Shortness of breath Complete two-dimensional, color flow and Doppler transthoracic echocardiogram is performed. Strain analysis performed. Summary 1. Complete two-dimensional, color flow and Doppler transthoracic echocardiogram is performed. 2. Left ventricular chamber dimension is normal. 3. Left ventricular systolic function is normal, estimated at 65-70%. 4. There is mild concentric increased left ventricular wall thickness. 5. The left ventricular diastolic function is grade I diastolic dysfunction. 6. E/e' 24 is elevated. 7. Global longitudinal strain is abnormal at -12.0%. 8. Left atrial chamber dimension is moderately enlarged. 9. The mitral valve has moderately calcified annulus. 10. There is trace tricuspid valve regurgitation. 11. Mild pulmonary hypertension, estimated pulmonary arterial systolic pressure is 41 mmHg. Left Ventricle E/e' 24 is elevated. Global longitudinal strain is abnormal at -12.0%. Left ventricular chamber dimension is normal. Left ventricular systolic function is normal, estimated at 65-70%. There is mild concentric increased left ventricular wall thickness. The left ventricular diastolic function is grade I diastolic dysfunction. Right Ventricle Right ventricular systolic function is normal and with normal TAPSE 2.6 cm. Right ventricular chamber dimension is normal. Left Atria Left atrial chamber dimension is moderately enlarged. Right Atria Right atrial chamber dimension is normal. Aortic Valve The aortic valve is trileaflet. There is no aortic valve stenosis. There is no aortic valve regurgitation. Pulmonic Valve There is no pulmonic regurgitation. Mitral Valve The mitral valve has moderately calcified annulus. There is no mitral valve stenosis. There is no mitral valve regurgitation. Tricuspid Valve There is trace tricuspid valve regurgitation. Mild pulmonary hypertension, estimated pulmonary arterial systolic pressure is 41 mmHg. Pericardium/Pleural There is no pericardial effusion. Inferior Vena Cava Normal inferior vena cava with >50% collapse upon inspiration consistent with normal right atrial pressure, 5 mmHg. Aorta The aortic root size at the sinus of Valsalva is normal. Left Ventricular Outflow Tract Name Value Normal LVOT 2D LVOT Diameter 1.9 cm LVOT Doppler LVOT Peak Gradient 6 mmHg LVOT Mean Gradient 4 mmHg LVOT VTI 23 cm LVOT VTI/AV VTI Ratio 0.8 LVOT Stroke Volume 63 ml LVOT CO 6.2 l/min LVOT CI 4.4 l/min/m2 Pulmonic Valve ---
[2023-11-14] MEDS: hydrALAZINE HCL 20 MG/ML VIAL 10 MG IV PUSH ×2 (00:16→16:44)
[2023-11-14 01:13] LABS: Add Urine Microscopic? YES; Appearance Urine Clear (Clear); Bacteria Urine Rare /hpf; Bilirubin Urine Negative (Negative); Blood Urine Trace (Negative); Color Urine Yellow (Yellow); Glucose Urine UA 2+ mg/dL (Negative); Ketones Urine Trace mg/dL (Negative); Leukocyte Esterase Ur Trace LEU/UL (Negative); Nitrate Urine Negative (Negative); Non Pathogenic Casts 0-2; Protein Urine 3+ mg/dL (Negative); RBC Urine 0-2 /hpf (0-2); Specific Grav Ur 1.011 (1.001-1.035); Squamous Epithelial Cell Urine Occasional /hpf (Few); Urobilinogen Urine 0.2 mg/dL (<2.0)
--- NOTE | 2023-11-14 02:06 | PM.IMHP ---
H&P: HPI History of Present Illness Date/Time: 11/14/23 02:06 Chief Complaint: shortness of breath/weakness Narrative: Ms. Thomas is a 73-year-old female with multiple medical comorbidities including CHF, anemia, chronic respiratory failure on approximately 2 L nasal cannula at home, CKD stage 4/5, COPD, history of CVA with resultant right upper extremity right lower extremity weakness. She presents to [place] ER with complaint of shortness of breath. She was found to have vitals including blood pressure 200/120, coming down to 190/90 after a dose of Lasix and hydralazine 10 mg IV x1 Found to be tachypneic requiring there is non-rebreather. Eventually coming down to require only 6 L nasal cannula. Tachycardia in the 100s. WBC 20, hemoglobin 9.6, platelets 130. ABG demonstrating pH 7.2, pCO2 29, bicarb 12.3. Sodium 137, anion gap 17, BUN 63, serum creatinine 7.7, glucose 125, lactic acid within normal limits. Troponin 0.083 2.102, BNP 74410 Urinalysis mildly positive with trace leukocyte esterase and 6-10 wbc's with a cane is squamous cells. Chest x-ray demonstrated interstitial edema and a small left pleural. She was given DuoNeb treatment x2, hydralazine 10 mg IV x1, aspirin 324 mg, ceftriaxone 1 g, Lasix 40 mg IV x1. With these therapies the patient reported she was feeling better, about 50% back to her baseline. Review of Systems Review of Systems: All systems reviewed & are unremarkable except as noted in HPI and below ( Subjective) [facility] Past Medical History Medical History Acute hypokalemia Acute respiratory failure with hypoxia Anemia Carotid artery disease Carotid bruit CHF (congestive heart failure) Chronic renal insufficiency Chronic respiratory failure 4L chronically CKD (chronic kidney disease) Hx of one kidney CML (chronic myelocytic leukemia) Congestive heart failure COPD (chronic obstructive pulmonary disease) COPD exacerbation CVA (cerebral vascular accident) In 2009, 2011 with right sided weakness mostly in the right hand weakness Diabetes type 2, controlled Elevated troponin Former smoker Hyperlipidemia Hypertension Mixed hyperlipidemia JAEL (obstructive sleep apnea) Surgical History Surgical History H/O: hysterectomy Hx of right knee surgery Family History Family History Father Family history of cardiovascular disease Mother Family history of chronic obstructive pulmonary disease Family history of lung cancer Sibling Family history of chronic obstructive pulmonary disease Patient's sister is in good health Other Family history of malignant neoplasm of uterus Social History Social History Social History: Tobacco use x 54yrs up to 1ppd. Rare alcohol use. in 2013. Smoking packs per day: 1 Smoking cigarettes per day: 20.0 Years smoked: 54 Smoking pack-years: 54.00 Smoking status: Former smoker Second hand tobacco smoke exposure: Yes Alcohol intake: never Substance use: never Do You Feel Safe in your Home?: Yes Lack of Transportation: No Lack of Food: Never True Current Housing: I Have Housing Concerned About Future Housing: No Difficulty Paying Gas/Electric Bills: No Difficulty Paying for Meds: No Currently Unemployed: No Education: High School Diploma/GED Difficulty w/ Childcare or Family Care: No Gender identity (if verbalized by the patient): Female Spiritual care concerns: No Agree to blood products: No Meds Home Medications and Allergies Home Medications Medication Instructions Recorded Confirmed Type albuterol sulfate 90 mcg/actuation 2 puff inhalation Q4-6H PRN 05/25/23 11/13/23 Rx aerosol inhaler (ProAir HFA) shortness of elodia
[2023-11-14] MEDS: hydrALAZINE HCL 20 MG/ML VIAL 5 MG IV PUSH (03:18)
[2023-11-14] MEDS: dilTIAZem HCl INJ 25 MG/5 ML VIAL 10 MG IV PUSH (04:44)
[2023-11-14 05:25] LABS: INR 1.2; Prothrombin Time 15.9 Seconds (11.1-14.7)
[2023-11-14 05:28] LABS: Alanine Aminotransferase 10 U/L (6-35); Albumin Level 3.8 g/dL (3.5-5.1); Alkaline Phosphatase 94 U/L (38-126); Anion Gap 18 mmol/L (4-12); Aspartate Amino Transferase 17 U/L (14-36); Bilirubin,Total 0.2 mg/dL (0.2-1.3); Blood Urea Nitrogen 68 mg/dL (7-17); Carbon Dioxide 7 mmol/L (22-30); Chloride 112 mmol/L (98-107); Estimated Glomerular Filt Rate 5; Glucose 110 mg/dL (65-110); Magnesium 2.2 mg/dL (1.6-2.3); Potassium 3.6 mmol/L (3.4-5.0); Sodium 137 mmol/L (137-145)
[2023-11-14 05:29] LABS: Lactic Acid Reflex 0.8 mmol/L (0.7-2.0)
--- NOTE | 2023-11-14 05:43 | PC.NURSE ---
Spoke with Dr. Maloney regarding follow up b/p at 0420, recieved new orders. Spoke with Dr. Maloney regarding follow up b/p at 2030. New orders received to administer am dose of amlodipine.
[2023-11-14] MEDS: amLODIPine BESYLATE 10 MG TABLET PO (05:48)
[2023-11-14] MEDS: IPRATROPIUM 0.5 MG/ALBUTEROL SULFATE 2.5 MG AMPUL.NEB 3 ML INHALATION ×3 (07:21→20:04)
--- NOTE | 2023-11-14 08:27 | ECG_ITS ---
Test Date: 2023-11-14 09:39:51 Measurements Intervals [place] Rate: 102 P: 63 WI: 152 QRS: 63 QRSD: 94 T: -63 QT: 420 QTc: 550 Interpretive Statements SINUS TACHYCARDIA POSSIBLE LEFT ATRIAL ENLARGEMENT ST DEVIATION AND MODERATE T-WAVE ABNORMALITY, CONSIDER INFERIOR ISCHEMIA BASELINE ARTIFACT- I, II, III, AVR, AVF, V1, V3-V6 ABNORMAL ECG Compared to ECG 11/13/2023 18:42:39 HEART RATE HAS INCREASED Electronically Signed On 11-14-2023 10:45:30 CDT by Kasi Arambula D.O.
[2023-11-14] MEDS: FUROSEMIDE INJ 40 MG/4 ML VIAL IV PUSH ×2 (09:09→22:02)
[2023-11-14] MEDS: ASPIRIN 81 MG CHEWABLE TABLET PO (09:09)
[2023-11-14] MEDS: SODIUM BICARBONATE 8.4% 150 MEQ in DEXTROSE 5% 1,000 ML 950 ML 50 MEQ IV CONT (09:09)
--- NOTE | 2023-11-14 09:20 | P.CONNP_ITS ---
Assessment and Plan Assessment and plan (1) Chronic kidney disease (CKD), stage V: Code(s): N18.5 - Chronic kidney disease, stage 5 Status: Chronic Assessment and Plan: * suspect progression of disease * creatinine was running ~ 4.0 - 6.0mg/dl in 2022 * was up to 8.9 - 9.0mg/dl in Apri 2023 * has maintained that does not want to do dialysis * continue IV diuretic therapy * follow trend of renal function and UOP (2) Acute hypoxic respiratory failure: Code(s): J96.01 - Acute respiratory failure with hypoxia Status: Acute Assessment and Plan: * presumably due to volume overload + HTN urgency due to progressive renal dysfunction * some improvement in symptoms with BP control and diuresis * CXR with interstital edema and small left pleural effusion * wean supplemental oxygen as tolerated * continue nebulizer treatments and IV diuretics (3) Sepsis: Code(s): A41.9 - Sepsis, unspecified organism Status: Acute Assessment and Plan: * suspected due to leukocytosis, tachycardic, tachypnea and acidosis on presenta tion * possibly related to UTI versus SIRS versus other(?) * UA suggestive of UTI * follow culture data * on empiric antibiotics (4) Metabolic acidosis: Code(s): E87.20 - Acidosis, unspecified Status: Acute Assessment and Plan: * due to worsening renal failure * bicarb supplementation as tolerated (5) Congestive heart failure: Qualifiers: Heart failure chronicity: acute on chronic Heart failure type: unspecified Qualified Code(s): I50.9 - Heart failure, unspecified Code(s): I50.9 - Heart failure, unspecified Status: Acute Assessment and Plan: * more related to worsening renal dysfunction * last Echo noted * admission CXR results reviewed * IV diuresis as tolerated (6) Hypertension: Code(s): I10 - Essential (primary) hypertension Status: Chronic Assessment and Plan: * BP > 200 systolic on presentation * improvement noted with IV hydralazine * resumed on amlodipine * follow trend of hemodynamics Long extensive discussion (greater than 20 min) with the patient as well as her family at bedside regarding her advanced kidney disease now complicated by acute hypoxic respiratory failure, pulmonary edema / volume overload, metabolic acidosis, and hypertensive urgency. Unfortunately, despite aggressive c onservative therapy, I still have concerns that she may require renal replacement therapy /dialysis for definitive treatment of her significant medical issues and problems that likely stem from her advanced chronic kidney disease as mentioned above. She remains quite adamant that she does not want dialysis under any circumstance at this time and I will try to respect her wishes but I have informed her of family that I suspect medical therapy alone may not be enough to optimize her multitude of medical issues and problems at this time and she and her family appeared to voice understanding. She was previously on hospice before and may be worthwhile to rediscuss with the patient and her family goals of therapy and aggressiveness of care given her wishes as already mentioned. I will continue to follow the patient with you while she remains hospitalized and make further recommendations as deemed necessary. Thank you for allowing me to participate in the care of this patient. History of Present Illness Reason for Consult Consult date: 11/14/23 Reason for consult: chronic renal failure Chief Complaint Chief complaint: Acute on chronic renal
--- NOTE | 2023-11-14 09:20 | PM.CNNEP ---
Assessment and Plan Assessment and plan (1) Chronic kidney disease (CKD), stage V: Code(s): N18.5 - Chronic kidney disease, stage 5 Status: Chronic Assessment and Plan: suspect progression of disease creatinine was running ~ 4.0 - 6.0mg/dl in 2022 was up to 8.9 - 9.0mg/dl in Apri 2023 has maintained that does not want to do dialysis continue IV diuretic therapy follow trend of renal function and UOP (2) Acute hypoxic respiratory failure: Code(s): J96.01 - Acute respiratory failure with hypoxia Status: Acute Assessment and Plan: presumably due to volume overload + HTN urgency due to progressive renal dysfunction some improvement in symptoms with BP control and diuresis CXR with interstital edema and small left pleural effusion wean supplemental oxygen as tolerated continue nebulizer treatments and IV diuretics (3) Sepsis: Code(s): A41.9 - Sepsis, unspecified organism Status: Acute Assessment and Plan: suspected due to leukocytosis, tachycardic, tachypnea and acidosis on presentation possibly related to UTI versus SIRS versus other(?) UA suggestive of UTI follow culture data on empiric antibiotics (4) Metabolic acidosis: Code(s): E87.20 - Acidosis, unspecified Status: Acute Assessment and Plan: due to worsening renal failure bicarb supplementation as tolerated (5) Congestive heart failure: Qualifiers: Heart failure chronicity: acute on chronic Heart failure type: unspecified Qualified Code(s): I50.9 - Heart failure, unspecified Code(s): I50.9 - Heart failure, unspecified Status: Acute Assessment and Plan: more related to worsening renal dysfunction last Echo noted admission CXR results reviewed IV diuresis as tolerated (6) Hypertension: Code(s): I10 - Essential (primary) hypertension Status: Chronic Assessment and Plan: BP > 200 systolic on presentation improvement noted with IV hydralazine resumed on amlodipine follow trend of hemodynamics Long extensive discussion (greater than 20 min) with the patient as well as her family at bedside regarding her advanced kidney disease now complicated by acute hypoxic respiratory failure, pulmonary edema / volume overload, metabolic acidosis, and hypertensive urgency. Unfortunately, despite aggressive conservative therapy, I still have concerns that she may require renal replacement therapy /dialysis for definitive treatment of her significant medical issues and problems that likely stem from her advanced chronic kidney disease as mentioned above. She remains quite adamant that she does not want dialysis under any circumstance at this time and I will try to respect her wishes but I have informed her of family that I suspect medical therapy alone may not be enough to optimize her multitude of medical issues and problems at this time and she and her family appeared to voice understanding. She was previously on hospice before and may be worthwhile to rediscuss with the patient and her family goals of therapy and aggressiveness of care given her wishes as already mentioned. I will continue to follow the patient with you while she remains hospitalized and make further recommendations as deemed necessary. Thank you for allowing me to participate in the care of this patient. History of Present Illness Reason for Consult Consult date: 11/14/23 Reason for consult: chronic renal failure Chief Complaint Chief complaint: Acute on chronic renal failure, Metabolic acidosis History of Present Illness Narrative: The patient is a 72-year-old female with extensive past medical history as outlined below who presented to [facility] Emergency room with complaints of shortness of breath. It was difficult for the patient to elaborate how long her shortness of breath had been going on but it seemed to acutely worsened on the da
[2023-11-14] MEDS: SODIUM BICARBONATE TAB 650 MG TABLET 1300 MG PO ×2 (14:28→16:47)
--- NOTE | 2023-11-14 15:41 | PM.IMPN ---
Progress Note: A&P Assessment and Plan (1) Acute hypoxic respiratory failure: Code(s): J96.01 - Acute respiratory failure with hypoxia Status: Acute Assessment and Plan: Patient presents with SOB. BP was 200/120, coming down to 190/90 after a dose of Lasix and hydralazine 10 mg IV ABG 7. on 4L. CXR showing interstitial edema and a small left pleural. Believe her SOB, acute hypoxic respiratory failure and anion gap metabolic acidosis to be due to renal failure. Placed on a non-rebreather but weaned to 6 L nasal cannula. Started on DuoNeb treatment and IV lasix. Down to 5L. Wean O2 as tolerated. (2) Sepsis: Code(s): A41.9 - Sepsis, unspecified organism Status: Acute Assessment and Plan: WBC 20K, Tachycardic, tachypneic with resp failure and metabolic acidosis. Serum bicarb 9 (AG 17). CXR as above. UA: 3+ protein, 2+ glucose, trace ketones, trace LE, and 6-10 wbc's Possibly sepsis related to UTI vs SIRS from fluid overload from LINDSAY. BCx NGTD. UCx pending. Contineu rocephin. Narrow abx when able. (3) Acute renal failure: Code(s): N17.9 - Acute kidney failure, unspecified Status: Acute Assessment and Plan: Patient with LINDSAY/CKD. Baseline Cr 4-6 last year but was 8.9-9 in May during an ED visit. At that time, patient and family did not want anything done and were looking into hospice. Patient is DNR. Nephrology consulted to assist with LINDSAY and CKD short of dialysis. Continue Lasix 40 mg IV b.i.d.. Monitor renal function, UOP and electrolytes (4) Metabolic acidosis: Code(s): E87.20 - Acidosis, unspecified Status: Acute Assessment and Plan: As above. Start bicarb drip at low dose. (5) Leukocytosis: Code(s): D72.829 - Elevated white blood cell count, unspecified Status: Acute Assessment and Plan: Related to UTI? Or stress response? Follow (6) Congestive heart failure: Qualifiers: Heart failure chronicity: acute on chronic Heart failure type: unspecified Qualified Code(s): I50.9 - Heart failure, unspecified Code(s): I50.9 - Heart failure, unspecified Status: Acute Assessment and Plan: Echo showing EF 65-70% with Grade I diastolic dysfunction. Possible CHF exacerbation but more likely fluid overload related to renal failure. Lasix started. Wean o2 as toelrated. (7) Hypertension: Code(s): I10 - Essential (primary) hypertension Status: Acute Assessment and Plan: Patient with hypertensive urgency with BP 226/105. She received hydralazine IV and restarted amlodipine. Continue to trend blood pressure. Plan Care coordination/hospice consultation placed. DVT Prophylaxis - SCDs Code status - DNR Subjective Date/time seen: 11/14/23 15:41 Interval history: 73yo female with CHF, anemia, chronic respiratory failure (on 2 L), CKD stage 4/5, COPD, hx of CVA with RUE weakness here for shortness of breath. Shortness of breath is better today. She still has dyspnea exertion. No chest pain. No nausea or vomiting. Cough is productive of white sputum. Per RN, patient's symptoms worsened overnight and she required up to 10 L before being able to be weaned back down. Patient does not want dialysis. Exam Narrative: AF 97.7 173/97 106 22 97% 5L Gen - NARD Chest -scattered inspiratory rhonchi otherwise distant breath sounds. Normal respiratory CV - RRR S1/S2. Telemetry showing PVCs Abd - Soft, NT/ND, Positive BS Ext - No pedal edema Neuro - Alert and appropriate. Right hand and wrist flexion contraction. Psych - Nml mood and affect Skin - Warm and dry Objective Data Vital Signs Vital Signs: Vital Signs - 24 hr 11/13/23 18:30 11/13/23 19:16 11/13/23 19:06 Temperature Pulse Rate 99 92 Respiratory Rate 28 H 22 H Blood Pressure 226/105 H Pulse Oximetry 99 98 Oxygen Delivery Nasal Cannula Nasal Cannul
[2023-11-15] VITALS (16 sets, daily range): BP systolic 184–191; BP diastolic 82–104; PULSE 90–120; RESP 22–32; TEMP 36.3–36.6; O2SAT 90–98
[2023-11-15] MEDS: IPRATROPIUM 0.5 MG/ALBUTEROL SULFATE 2.5 MG AMPUL.NEB 3 ML INHALATION ×2 (01:49→08:10)
[2023-11-15] MEDS: LORazepam (*CRX) 0.5 MG TABLET PO (04:10)
[2023-11-15 05:34] LABS: Basophils Absolute Auto 0.1 K/mm3 (0.0-0.1); Basophils Percent Auto 0.5 % (0.2-1.2); Hematocrit 27.4 % (37.0-47.0); Hemoglobin 8.7 g/dL (12.0-15.0); Immature Granulocyte Absolute 0.39 K/mm3 (0.00-0.031); Immature Granulocyte Percent A 2.1 % (0-0.5); Lymphocytes Absolute Auto 0.19 K/mm3 (0.9-3.2); Mean Corpuscular HGB Conc 31.8 g/dl (32-36); Mean Corpuscular Volume 94.5 fl (80-100); Mean Platelet Volume 11.5 fl (7.4-10.4); Monocytes Absolute Auto 0.9 K/mm3 (0.1-0.6); Monocytes Percent Auto 4.8 % (2.6-8.5); Neutrophils Absolute Auto 17.1 K/mm3 (1.3-6.7); Neutrophils Percent Auto 91.6 % (45.5-73.1); Platelet Count Result 131 k/mm3 (150-375); Red Cell Distribution Width 16.2 % (11.5-14.5); White Blood Count 18.6 K/mm3 (4.5-10.0)
[2023-11-15 05:56] LABS: Alanine Aminotransferase 10 U/L (6-35); Albumin Level 3.9 g/dL (3.5-5.1); Alkaline Phosphatase 84 U/L (38-126); Anion Gap 18 mmol/L (4-12); Aspartate Amino Transferase 19 U/L (14-36); Bilirubin,Total 0.4 mg/dL (0.2-1.3); Blood Urea Nitrogen 73 mg/dL (7-17); Calcium 8.8 mg/dL (8.4-10.2); Carbon Dioxide 12 mmol/L (22-30); Chloride 103 mmol/L (98-107); Estimated Glomerular Filt Rate 5; Glucose 119 mg/dL (65-110); Phosphorus 8.6 mg/dL (2.5-4.5); Potassium 2.7 mmol/L (3.4-5.0); Sodium 133 mmol/L (137-145)
[2023-11-15] MEDS: POTASSIUM CHLORIDE 20 MEQ ER TABLET 40 MEQ PO (06:48)
[2023-11-15] MEDS: KCL 20 MEQ/SW 100 ML 100 ML 50 MEQ IVPB (06:49)
[2023-11-15] MEDS: SODIUM BICARBONATE TAB 650 MG TABLET 1300 MG PO (08:21)
[2023-11-15] MEDS: ASPIRIN 81 MG CHEWABLE TABLET PO (08:22)
[2023-11-15] MEDS: amLODIPine BESYLATE 10 MG TABLET PO (08:22)
[2023-11-15] MEDS: FUROSEMIDE INJ 40 MG/4 ML VIAL IV PUSH (08:22)
[2023-11-15] MEDS: MORPHINE SULFATE (*CRX) 2 MG/ML INJ 1 MG IV PUSH (11:52)
[2023-11-15] MEDS: IPRATROPIUM 0.5 MG/ALBUTEROL SULFATE 2.5 MG AMPUL.NEB 3 ML NEBULIZE (11:53)
--- NOTE | 2023-11-15 11:58 | PM.DS ---
DS: Admitting Diagnosis Discharge Date 11/15/2023: Admitting Diagnosis (1) Acute hypoxic respiratory failure: Code(s): J96.01 - Acute respiratory failure with hypoxia Status: Acute (2) Acute renal failure: Code(s): N17.9 - Acute kidney failure, unspecified Status: Acute (3) Metabolic acidosis: Code(s): E87.20 - Acidosis, unspecified Status: Acute (4) Leukocytosis: Code(s): D72.829 - Elevated white blood cell count, unspecified Status: Acute (5) Congestive heart failure: Qualifiers: Heart failure chronicity: acute on chronic Heart failure type: unspecified Qualified Code(s): I50.9 - Heart failure, unspecified Code(s): I50.9 - Heart failure, unspecified Status: Acute (6) COPD (chronic obstructive pulmonary disease): Code(s): J44.9 - Chronic obstructive pulmonary disease, unspecified Status: Acute (7) Anemia: Code(s): D64.9 - Anemia, unspecified Status: Acute DS: Discharge Diagnosis Discharge Diagnosis (1) Terminal care: Code(s): Z51.5 - Encounter for palliative care Status: Acute (2) Hospice care: Code(s): Z51.5 - Encounter for palliative care Status: Acute (3) Hypertension: Code(s): I10 - Essential (primary) hypertension Status: Acute (4) Sepsis: Code(s): A41.9 - Sepsis, unspecified organism Status: Acute (5) Acute hypoxic respiratory failure: Code(s): J96.01 - Acute respiratory failure with hypoxia Status: Acute (6) Acute renal failure: Code(s): N17.9 - Acute kidney failure, unspecified Status: Acute (7) Metabolic acidosis: Code(s): E87.20 - Acidosis, unspecified Status: Acute (8) Leukocytosis: Code(s): D72.829 - Elevated white blood cell count, unspecified Status: Acute (9) Nocturnal hypoxemia: Code(s): G47.34 - Idiopathic sleep related nonobstructive alveolar hypoventilation Status: Acute (10) Congestive heart failure: Qualifiers: Heart failure chronicity: acute on chronic Heart failure type: unspecified Qualified Code(s): I50.9 - Heart failure, unspecified Code(s): I50.9 - Heart failure, unspecified Status: Acute (11) Hypoxia: Code(s): R09.02 - Hypoxemia Status: Acute (12) 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 - Chronic myeloid leukemia, BCR/ABL-positive, not having achieved remission Status: Acute (13) COPD (chronic obstructive pulmonary disease): Code(s): J44.9 - Chronic obstructive pulmonary disease, unspecified Status: Acute (14) Chronic renal failure, stage 4 (severe): Code(s): N18.4 - Chronic kidney disease, stage 4 (severe) Status: Acute (15) Anemia: Code(s): D64.9 - Anemia, unspecified Status: Acute (16) JAEL (obstructive sleep apnea): Code(s): G47.33 - Obstructive sleep apnea (adult) (pediatric) Status: Acute (17) Former smoker: Code(s): Z87.891 - Personal history of nicotine dependence Status: Acute (18) Neuropathy: Code(s): G62.9 - Polyneuropathy, unspecified Status: Acute Plan Assessment and Plan (1) Acute hypoxic respiratory failure: Code(s): J96.01 - Acute respiratory failure with hypoxia Status: Acute Assessment and Plan: Patient presents with SOB. BP was 200/120, coming down to 190/90 after a dose of Lasix and hydralazine 10 mg IV ABG 7.24 on 4L. CXR showing interstitial edema and a small left pleural. Believe her SOB, acute hypoxic respiratory failure and anion gap metabolic acidosis to be due to renal failure. Placed on a non-rebreather but weaned to 6 L nasal cannula. Started on DuoNeb treatment and IV lasix. Down to 5L. Wean O2 as tolerated. (2) Sepsis: Code(s): A41.9 - Sepsis, unspecified organism Status: Acute Assessment and Plan: WBC 20K, Tachycardic, t
--- NOTE | 2023-11-15 16:36 | PC.NURSE ---
On 11/15/23, the student, Vilma Mauricio [facility], provided care and completed [facility] documentation on this patient. I have reviewed the student's documentation and agree with the findings.
== END 2023-11-15 12:55 | disposition hospice, home (50) | DRG 640 ==
LOC: ANHED 21:09 → ANHIMU 22:40
PROVIDERS: Emergency Medicine; Internal Medicine; Admitting Provider General Practice; Emergency Provider Emergency Medicine; PCP Nurse Practitioner Family; Visit Provider Family Medicine
DX: E87.79 Other fluid overload (principal); I50.33 Acute on chronic diastolic (congestive) heart failure; J96.21 Acute and chronic respiratory failure with hypoxia; N17.9 Acute kidney failure, unspecified; R65.10 Systemic inflammatory response syndrome (SIRS) of non-infectious origin without acute organ dysfunction; I13.2 Hypertensive heart and chronic kidney disease with heart failure and with stage 5 chronic kidney disease, or end stage renal disease; C92.10 Chronic myeloid leukemia, BCR/ABL-positive, not having achieved remission; I69.351 Hemiplegia and hemiparesis following cerebral infarction affecting right dominant side; N18.5 Chronic kidney disease, stage 5; E87.21 Acute metabolic acidosis; E11.22 Type 2 diabetes mellitus with diabetic chronic kidney disease; E78.2 Mixed hyperlipidemia; J44.9 Chronic obstructive pulmonary disease, unspecified; D64.9 Anemia, unspecified; G47.33 Obstructive sleep apnea (adult) (pediatric); G62.9 Polyneuropathy, unspecified; Z66 Do not resuscitate; Z51.5 Encounter for palliative care; Z87.891 Personal history of nicotine dependence; Z99.81 Dependence on supplemental oxygen; Z90.710 Acquired absence of both cervix and uterus
CPT/HCPCS: 36415; 36600; 71045; 80053; 81001; 82805; 82810; 83605; 83735; 83880; 84100; 84145; 84484; 85025; 85610; 87040; 87086; 87088; 93005; 93306; 94640; 96374; 96375; 96376; 99285; A9270; G0378; J0360; J0696; J1940; J2270; J3480; J7070